=== PATIENT | male | born 1965 | race Caucasian/White ===

== ENCOUNTER 2024-08-23 14:43 | Inpatient (IN) | payer BC, SELFPAY ==
[2024-08-23 09:36] VITALS: BP 141/82
--- NOTE | 2024-08-23 11:28 | ED.GENMED ---
History of Present Illness
General
Chief Complaint: Anal/Rectal Problem
Source: patient
Exam Limitations: none
Time Seen by Provider: 08/23/24 11:09
Nursing documentation reviewed up to this point in time: agreed with
History of Present Illness
History of Present Illness:
59-year-old male with history of COPD, HIV states he had rectal pain for years but in the past 2 weeks has developed painful 'lumps' in the rectal area with intermittent bleeding. He feels generally weak and shaky. Denies fever or chills. Denies
abdominal pain. Denies trouble urinating. Denies diarrhea or constipation.
He is followed by Dr. Avelar infectious disease for his HIV.
Past History
Past History
ED Past Medical History: COPD and Other (HIV)
Social History
Tobacco: Smoker
Alcohol: Occasional
Personal:
Living: with family
Review of Systems
Review of Systems
Allergies reviewed?: Yes
All Other Systems: ROS reviewed and negative except as documented in HPI and ROS
Constitutional: Denies fever or chills
Respiratory: Denies trouble breathing
Cardiac: Denies chest pain
ABD/GI: Denies abdominal pain, nausea, vomiting, diarrhea or constipated
: Reports other (Painful growths perirectally.); Denies dysuria or difficulty voiding
Musculoskeletal: Reports no symptoms
Neurological: Reports no symptoms
Phy Exam
Physical Exam
Physical Exam:
GENERAL: No acute distress. A&Ox3.
CONSTITUTIONAL: Afebrile.
EYES: clear, conjunctivae normal
ENMT: moist mucus membranes, Pharynx nl
RESPIRATORY: Regular respirations, nonlabored, lungs clear.
CARDIOVASCULAR: Regular rate and rhythm, no murmurs, no rubs.
GI: Soft, nontender, normal BS
Rectal: Condylomatous growths perirectally, deep fissures with minimal blood
MUSCULOSKELETAL: Moves with ease. Well perfused.
SKIN: Warm, dry, pink
PSYCH: Normal mood and affect. Well kept, interactive and appropriate
NEUROLOGIC: Awake, alert and oriented. No focal neurological deficits
Course
Orders/Labs/Results
Orders:
Orders
08/23/24 Breakfast
NPO
Allow oral meds: No
Allow clear liquids: No
08/23/24 11:29
CD4 Leukocyte Marker Profile [S] Urgent
Complete Blood Count/With Diff Urgent
Comprehensive Metabolic Panel Urgent
08/23/24 12:31
HIV-1 by Quantitative NAAT [S] Urgent
08/23/24 13:03
CT Pelvis With Iv Contrast Urgent
Comment:
Reason For Exam: perineal infection
08/23/24 13:19
Anti-embolism (LINO) Hose As Directed
Type: Knee high
Pneumatic Compression Sleeves As Directed
Type: Knee high
Surgical Procedure As Directed
Surgical Procedure: I+D of perianal abscess
DX Deep Vein Thrombosis Video Routine
08/23/24 13:30
0.9% Sodium Chloride 1000 ml [Nss] 1,000 ml IV 100 mls/hr
08/23/24 13:37
Admit/Transfer Patient As Directed
Co-Sign Provider:
Level of Care: Inpatient admission
Assign to:: Medical/Surgical
Physician / Group: juan deras
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
Expected length of stay greater than two midnights?: Yes
ELOS- Estimated Length of Stay in days: 4
I certify the patient meets the requirements for IP care: Yes
Code Status As Directed
Resuscitation Status: Full Code
SURGICAL CONSULT Routine
Consulting Provider: Pasha Tirado
Was physician already notified: Yes
Reason for consult: rectal drainage, severe anal condyloma/hiv
08/23/24 13:40
PRN Pain Medication Management As Directed
May give lesser potent ordered pain med per pt: Yes
preference::
Protocol:: Medication orders for pain may be administered in a
manner that supports deferring to patient preference
when the pt is:
- Requesting an ordered lesser potent pain medication.
Least to most potent pain medications are defined
as: acetaminophen < NSAID < tramadol < opioids
(morphine, oxycodone, hydromorphone).
- Requesting a lesser dose of the same medication IF
ORDERED.
- Requesting a less intrusive route of administration
if both routes are prescribed by the provider (PO <
IV).
08/23/24 14:00
Piperacillin/Tazo 2.25 Gram [Zosyn] 2.25 grams in 50 ml IV Q8H
Piperacillin/Tazo 3.375 Gram [Zosyn] 3.375 gram in 50 ml IV Q6H
08/23/24 14:23
HYDROmorphone [Dilaudid] 0.5 mg IV NOW STA
08/23/24 14:30
Type+Screen Urgent
Glycohemoglobin (HgbA1c) Urgent
PTT Urgent
Prothrombin Time Urgent
08/23/24 15:14
Acetaminophen [Tylenol] 650 mg PO Q4HPRN PRN
HYDROmorphone [Dilaudid] 0.5 mg IV Q4HPRN PRN
HYDROmorphone [Dilaudid] 1 mg IV Q4HPRN PRN
Ondansetron Injectable [Zofran] 4 mg IV Q6HPRN PRN
Piperacillin/Tazo 3.375 Gram [Zosyn] 3.375 gram in 50 ml IV Q6H
08/23/24 15:14
Activity As Directed
Activity Level: As Tolerated
Pneumatic Compression Sleeves As Directed
Type: Knee high
Vital Signs As Directed
Frequency: Per unit guidelines
DX Deep Vein Thrombosis Video Routine
08/23/24 15:54
ABO2 Urgent
BBK Wristband Number:
Associate notified that ABO2 has been ordered: [id number]
Date: 08/23/24
Time: 14:39
Production Supply Equipment Tender ID: [id number]
08/24/24 06:00
Complete Blood Count/With Diff IN AM
Comprehensive Metabolic Panel IN AM
08/25/24 06:00
Complete Blood Count/With Diff IN AM
Comprehensive Metabolic Panel IN AM
08/26/24 06:00
Complete Blood Count/With Diff IN AM
Comprehensive Metabolic Panel IN AM
08/27/24 06:00
Complete Blood Count/With Diff IN AM
Comprehensive Metabolic Panel IN AM
Abnormal Lab Results
08/23/24
11:29
WBC 13.6 H 10^3/uL
(4.8-10.8)
RBC 4.18 L 10^6/uL
(4.70-6.10)
Hgb 12.4 L g/dL
(13.0-18.0)
Hct 37.5 L %
(39.0-52.0)
Abs Immat Gran (auto) 0.1 H 10^3/uL
(0-0.05)
Absolute Neuts (auto) 11.2 H 10^3/uL
(1.4-6.5)
Absolute Monos (auto) 0.9 H 10^3/uL
(0.1-0.6)
Immature Gran % 0.6 H %
(0-0.5)
Neutrophils % 82.2 H %
(42.2-75.2)
Lymphocytes % 10.4 L %
(20.5-51.1)
Sodium 132 L mmol/L
(135-145)
Chloride 95 L mmol/L
(98-107)
Glucose 219 H mg/dl
(70-99)
08/23/24 11:29
08/23/24 11:29
Vital Signs
Initial and Last Documented VS:
Initial Vital Signs
Temp Pulse Resp BP Pulse Ox
98.1 F 117 18 141/82 100
08/23/24 09:36 08/23/24 09:36 08/23/24 09:36 08/23/24 09:36 08/23/24 09:36
Last Documented Vital Signs
Temp Pulse Resp BP Pulse Ox
98.2 F 106 18 141/78 96
08/23/24 15:34 08/23/24 15:34 08/23/24 15:34 08/23/24 15:34 08/23/24 15:34
MDM/Problems Addressed
Differential Diagnosis Includes:
condyloma, rectal CA, Fornier's
MDM/Problems Addressed:
59-year-old male with history of COPD, HIV states he had rectal pain for years but in the past 2 weeks has developed painful 'lumps' in the rectal area with intermittent bleeding. He feels generally weak and shaky. Denies fever or chills. Denies
abdominal pain. Denies trouble urinating. Denies diarrhea or constipation.
He is followed by Dr. Avelar infectious disease for his HIV.
Afebrile, appears uncomfortable due to rectal pain.
11:[address] Tirado consulted and will have someone in his group see pt.
1:25 PM:
Patient to be admitted to hospitalist service at the request of Dr. Tirado
Hospitalist notified of admission
*Critical Care Note
Total Time (30-74mins, 75-104mins- exclusive of procedures): Not Applicable
ED Attending Note
-
Portions of this chart may have been created with voice recognition software.� Occasional wrong word or��sound alike� substitutions may have occurred due to the inherent limitations of voice recognition software.
Discharge Plan
Departure
Patient Disposition: Admit
Date of Disposition: 08/23/24
Time of Disposition: 13:20
Admit to: Med/Surg
Presentation/result/management discussed w/ accepting MD/DO: Hospitalist
Condition: Fair
Discharge Problem:
Mass of perirectal soft tissue
Interventions
Interventions:
*Risk Screen - Suicide Last Done: 08/23/24 09:36
*General Assessment Last Done: 08/23/24 09:36
*Neglect/Abuse Screening Last Done: 08/23/24 12:52
*ED COVID-19 Vaccine History Last Done: 08/23/24 09:36
*Nursing Disposition Last Done: 08/23/24 15:18
ED-Skin Assessment Last Done: 08/23/24 11:50
Discharge Date and Time
Discharge Date/Time: 08/23/24 15:18
[2024-08-23 11:45] LABS: % Basophils 0.4 % (0-2); % Eosinophils 0.2 % (0-6); % Immature Granulocytes 0.6 % (0-0.5); % Lymphocytes 10.4 % (20.5-51.1); % Monocytes 6.2 % (1.7-9.3); % Neutrophils 82.2 % (42.2-75.2); Absolute Basophils 0.1 10^3/uL (0-0.2); Absolute Immature Granulocytes 0.1 10^3/uL (0-0.05); Absolute Lymphocytes 1.4 10^3/uL (1.2-3.4); Absolute Monocytes 0.9 10^3/uL (0.1-0.6); Absolute Neutrophils 11.2 10^3/uL (1.4-6.5); Hematocrit 37.5 % (39.0-52.0); Hemoglobin 12.4 g/dL (13.0-18.0); Mean Corp Hgb Conc. 33.1 g/dL (33.0-37.0); Mean Corpuscular Hgb 29.7 pg (27.0-31.0); Mean Corpuscular Volume 89.7 fL (80.0-94.0); Nucleated Red Blood Cells % 0 % (-); Platelet Count 320 10^3/uL (130-400); Red Blood Cell Count 4.18 10^6/uL (4.70-6.10); Red Cell Dist. Width 12.5 % (11.5-14.5); White Blood Cell Count 13.6 10^3/uL (4.8-10.8)
[2024-08-23 11:59] LABS: ALT (SGPT) 15 U/L (0-50); AST (SGOT) 18 U/L (17-59); Albumin 4.1 g/dl (3.5-5.0); Alkaline Phosphatase 87 U/L (38-126); Blood Urea Nitrogen 20 mg/dl (9-20); Calcium 9.7 mg/dl (8.4-10.2); Carbon Dioxide 25 mmol/L (22-30); Chloride 95 mmol/L (98-107); Glucose 219 mg/dl (70-99); Potassium 4.2 mmol/L (3.5-5.1); Sodium 132 mmol/L (135-145); Total Protein 7.6 g/dl (6.3-8.2); eGFR > 60.00
--- NOTE | 2024-08-23 12:18 | CON.CRS ---
Consultation
-
Date/Time Consultation Requested: 08/23/2024, 11:30
Date/Time Consultation Performed: 08/23/2024, 12:45
Requesting Provider: Susan Allison
Performing Provider: eKon Blanco MD
Reason for Consultation: anal warts
Medical History
-
Chief Complaint: anal pain
History of Present Illness:
59-year-old male with a history of HIV and COPD presents to [facility] complaining of painful lumps in his rectal area. He states this has been going on 'for a long time'. He thinks perhaps years ago but over the last month the pain has been
worsening and growths have been increasing over the past two weeks. Currently he has pain 'all the time'. He is at the point where he can't sit or work. He has intermittent bleeding. He denies fevers but admits to chills in the AM. He denies
abdominal pain. His bowel movements are regular and unchanged. Denies nausea or vomiting. His partner states he has noticed a decrease in appetite. He currently sees Dr. Avelar of infectious disease for his HIV management. Per patient, his viral
loads and cell count have been normal as of 6 months ago. He is due to have lab work done next month. His WBC on arrival was 13.6. He has remained afebrile. He is tachycardic at 117. On exam in the ER, it was noted he had severe anal warts. We
have been consulted for surgical opinion.
Past Medical History
Past Medical History: COPD and Other (HIV)
Social History
Tobacco: Smoker (1ppd)
Alcohol: Occasional
Drug: None
Personal:
Living: With Family
Employment: Employed
Family History
Family History: Reviewed & Not Pertinent
Allergies / Home Medications
Allergy/AdvReac Type Severity Reaction Status Date / Time
No Known Allergies Allergy Unverified 08/23/24 09:40
Review of Systems
-
History Source: Patient
Constitutional: Chills
Abdomen/GI: Anorexia and Other (Rectal pain with 'lumps' noted around area)
A 10 point review of systems was completed, and was negative except as per HPI.
Physical Exam
Vital Signs
Temp 98.1 F 08/23/24 09:36
Pulse 117 08/23/24 09:36
Resp Rate 18 08/23/24 09:36
Blood pressure 141/82 08/23/24 09:36
SaO2 100 08/23/24 09:36
Lab Results / Allergies
08/23/24 11:29
08/23/24 11:29
WBC 13.6 10^3/uL (4.8-10.8) H 08/23/24 11:29
Hgb 12.4 g/dL (13.0-18.0) L 08/23/24 11:29
Hct 37.5 % (39.0-52.0) L 08/23/24 11:29
Plt Count 320 10^3/uL (130-400) 08/23/24 11:29
Abs Immat Gran (auto) 0.1 10^3/uL (0-0.05) H 08/23/24 11:29
Neutrophils % 82.2 % (42.2-75.2) H 08/23/24 11:29
Allergy/AdvReac Type Severity Reaction Status Date / Time
No Known Allergies Allergy Unverified 08/23/24 09:40
Physical Exam
General: Well Developed and Well Nourished
GI: Soft, Non Tender and Non Distended
Rectal: Other (large anal condyloma surrounding the anal area, shannon brown pus coming from anus, DEBORAH deferred, tender/erythetamous around scrotum)
Neuro: AO x 3
Data Reviewed
-
Labs: Labs Reviewed by me, Discussed with Physician and Discussed with Patient
Old Records: Reviewed
Assessment / Plan
-
Assessment: 59-year-old male with a history of HIV presents to [place] [facility] complaining of anal pain and lumps, found to have severe condylomatous disease with brown pus from anal area and scrotal tenderness/erythema, worrisome for Fourneir's
Plan:
-CT pelvis IV contrast urgent
-Start IV antibiotics
-NPO with IVFs
-Has been placed on the OR schedule for an I+D.
--- NOTE | 2024-08-23 13:34 | HPS.HSE ---
Family Physician
-
Family Physician:
Chief Complaint
-
Scrotal pain, rectal pain with brown discharge and anal condyloma warts
History of Present Illness
59-year-old male with history of HIV, COPD complaining of painful lumps to his rectal area that have been ongoing for a' long time' he reports in the last month the pain has been worsening and they have been increasing in size over the past 2 weeks.
He reports the pain is so bad he is unable to sit at work. He also reports a tender scrotal area. He follows with Dr. Avelar infectious disease for his HIV management his viral loads and cell count have been normal for the past 6 months. In the
ER he was noted to have severe anal warts with scrotal tenderness, shannon brown pus coming from anus along with WBC 13.6, and tachycardic HR 117. He was seen by surgery at bedside by Dr. Celestino aguiar who had concern for early foreign years disease
and is taking patient to the OR today. He has past medical history of HIV, COPD, anal condyloma, active smoker.
Medical History
Past Medical History
Past Medical History: Reports Other
Additional Past Medical History:
HIV
COPD
anal condyloma
active smoker.
Past Surgical History: Reports None
Social History
Tobacco: Smoker (1 pack/day)
Alcohol: Occasional (weekends 5-6 rum and coke and 1-2 drinks rum coke a week total 7 drinks a week)
Drug: None
Personal:
Living: With Family ( raghavendra)
Family History
Family History: Other (There are Alzheimer's, father living history pacemaker, 1 sister history of breast cancer surviving 2 brothers healthy)
Allergies / Home Medications
Allergies reflects when Allergies were last updated in [facility].
Home Medications with original date entered in [facility]
Allergy/Medication List:
Allergies
Allergy/AdvReac Type Severity Reaction Status Date / Time
No Known Allergies Allergy Unverified 08/23/24 09:40
Home Medications
.Intelence 200 mg PO BID 08/23/24
Priscobix 1 tab PO DAILY 08/23/24
Tivickay 50 tab PO BID 08/23/24
Review of Systems
-
History Source: Patient and Family ( at bedside)
A 12 point ROS was completed and negative except as noted: Yes
Constitutional: Reports Chills; Denies Fever
EENT: Denies Sore Throat or Runny Nose
Respiratory: Denies Cough or Trouble Breathing
Cardiac: Denies Chest Pain, Palpitations or Syncope
Abdomen/GI: Denies Abdominal Pain, Nausea, Vomiting, Diarrhea, Constipated, Bloody Stools or Black Stools
: Reports Other (Condyloma with tenderness to perineum/anus); Denies Dysuria, Frequency, Flank Pain, Incontinence or Difficulty Voiding
Musculoskeletal: Denies Joint Pain or Edema
Skin: Denies Itching or Rash
Neurological: Denies Dizzy, Headache or Weakness
Endocrine: Reports No Symptoms
Hematologic/Lymphatic: Reports No Symptoms
Psych: Reports Calm
Physical Exam
Vital Signs
Vital Signs
Temp Pulse Resp BP Pulse Ox
98.1 F 117 18 141/82 100
08/23/24 09:36 08/23/24 09:36 08/23/24 09:36 08/23/24 09:36 08/23/24 09:36
Physical Exam
General: Conversant and Pain; No Fever or Chills
HEENT: NormoCephalic, Anicteric, Moist mucous membranes, PERRLA, [place] Conjunctivae and No Ptosis
Respiratory: Clear; No Wheezes, Rales or Rhonchi
Cardiac: S1/S2 and Regular Rhythm; No Murmur, Rub, Gallop or Peripheral Edema
GI: Soft, Non Tender, Non Distended, Normal Bowel Sounds and No Hepatosplenomegaly
Rectal: Other (Condyloma to anus with tenderness to perineum/anus)
Musculoskeletal: No Clubbing, No Cyanosis and No Edema
Skin: Warm and Dry; No Rash
Neuro: AO x 3, No Motor Deficits, Cranial Nerves Intact and No Sensory Deficits; No Slurred Speech, Facial Droop, Tremors or Sedated
Psych: Calm
Laboratory Results
-
08/23/24 11:
08/23/24 11:
Laboratory Results
Total Bilirubin 1.0 mg/dl (0.2-1.3) 08/23/24 11:
AST 18 U/L (17-59) 08/23/24 11:
ALT 15 U/L (0-50) 08/23/24 11:
Alkaline Phosphatase 87 U/L (38-126) 08/23/24 11:
Data Reviewed
-
CT Scan: Report Reviewed by me
Lab Data: Labs Reviewed by me
Impression/Plan
-
Impression/plan:
Admit to MedSurg
#Scrotal/rectal pain/rectal discharge with Anal warts with perineal abscess and NEW LEFT aspect ANAL CANAL MASS
#Severe anal condyloma disease
WBC 13.6 with left shift temp 98.1 F, HR 117, 141/82
-Consult Dr. Stephens patient at bedside
-N.p.o. plan for OR today for I&D with culture
-Check CT pelvis with IV contrast
-Tylenol as needed fever
IV 1 L NSS given in ER
-IV Zosyn
-IV Dilaudid as needed pain, IV Zofran
-Follow CBC, CMP, check coags
CT pelvis with contrast:
1. Extensive soft tissue thickening and stranding involving the perineum with a 4.7 x 4.6 x 2.6 cm peripherally enhancing collection anteriorly with numerous internal septations consistent with abscess.
This abuts the posterior aspect of the scrotum.
2. Additionally there is a 0.8 x 0.5 cm peripheral enhancing focus along the right aspect of the mid anal canal suspicious for a small perianal abscess.
3. There is extensive thickening and heterogeneity along the left aspect of the anal canal which may related to infection although suspicious for an underlying mass.
Recommend direct visualization for further characterization.
4. There is a 1.5 x 0.9 cm soft tissue nodule along the left anterolateral aspect of the anal canal, in the region of the anorectal junction which may be reactive although a malignant node cannot be
excluded.
#HIV x 25-30 years
-Follows with Dr. Avelar infectious disease [facility]
-Last viral load was normal within the last 6 months
-Check CD4 count, HIV serologies
-Most recent CD4 count 467 with undetectable viral load, percent CD4 14.6 on 03/09/2024 visit
-Medical records and medication list requested from Dr. Jean Avelar infectious disease office [phone]
-Continue Intelence 200mg twice daily, Trivicay 50 mg bid, Prezcobix 800mg/150mg daily (left message for to bring medications to hospital as we do not carry
#Acute hyperglycemia unclear if DM 2
BS 219
Accu-Cheks with SSI, check HgbA1c
#COPD�no acute exacerbation
Active smoker
-1 pack/day
-Nicotine patch 21 mg given
-Cessation advised
#Alcohol use
Patient drinks 5-6 rum and coke on weekends and 1-2 rum and coke drinks during the week totaling 7 drinks per week
Last drink was yesterday 08/22/2024 approximately 4 PM
DVT prophylaxis
SCDs
Full code
[2024-08-23 14:00] VITALS: BP 113/87
--- NOTE | 2024-08-23 14:14 | W.PN.UPDATE ---
Update Note
Progress Note Update
This is an addendum to the H&P written by Zulay Adams on 08/23/2024.� Patient seen and examined independently with LANDSCAPE PAINTER.
59-year-old male past medical history of HIV, COPD presenting with painful lumps in his rectal area worsening over the past 2 weeks with intermittent bleeding.� Denies abdominal pain or chills or nausea or vomiting. Denies any scrotal pain or
urinary symptoms.�
Patient follows with Dr. Avelar of infectious disease for HIV management and his cell counts have been normal as of 6 months ago.
On examination he had anal warts, Brown pus from the anal area and scrotal tenderness/erythema concerning for early�Javier's.�
Labs show leukocytosis.
Urgent CT scan pending.� NPO.� IV fluids.� Zosyn.� Colorectal to take to the OR for I&D.
[2024-08-23 14:27] VITALS: BMI 21.6
[2024-08-23] MEDS: NSS 1000 IV (14:38)
[2024-08-23] MEDS: ZOSYN 50 IV ×2 (14:39→21:02)
[2024-08-23] MEDS: DILAUDID 0.5 MG IV (14:39)
[2024-08-23 14:55] LABS: INR 1.11; PT 14.6 Sec (11.4-14.6)
[2024-08-23 15:34] VITALS: BP 141/78
--- NOTE | 2024-08-23 16:23 | W.PN.UPDATE ---
Update Note
Progress Note Update
Spoke with patient discussed results of CT scan; currently, no concern for Javier's; there are 2 abscesses, one at the base of the scrotum and one perianally; there is also concern for an anal mass; I explained that this will require incision and
drainage in the operating room as well as evaluation for anal mass with possible biopsy; explained the nature of [place] Jesse tumor, its association with the HPV virus and the elevated risk of developing cancer within the tumor; the patient
understood and all questions were answered; okay for regular diet and we will plan for the OR tomorrow with Celestino in the afternoon, n.p.o. at midnight
[2024-08-23] MEDS: DILAUDID 1 MG IV ×2 (17:14→21:18)
[2024-08-23] MEDS: NON-FORMULARY ITEM 200 MG PO (21:02)
[2024-08-23] MEDS: TIVICAY 50 MG PO (21:20)
[2024-08-23 23:35] VITALS: BP 107/66
[2024-08-24] VITALS (21 sets, daily range): BP systolic 109–152; BP diastolic 58–82
[2024-08-24] MEDS: NSS 1000 IV ×2 (01:15→16:56)
[2024-08-24] MEDS: ZOSYN 50 IV ×4 (01:43→21:07)
[2024-08-24] MEDS: DILAUDID 1 MG IV (01:54)
[2024-08-24 07:24] LABS: % Basophils 0.4 % (0-2); % Eosinophils 1.3 % (0-6); % Immature Granulocytes 0.6 % (0-0.5); % Lymphocytes 13.9 % (20.5-51.1); % Monocytes 9.2 % (1.7-9.3); % Neutrophils 74.6 % (42.2-75.2); Absolute Eosinophils 0.1 10^3/uL (0-0.7); Absolute Immature Granulocytes 0.1 10^3/uL (0-0.05); Absolute Lymphocytes 1.5 10^3/uL (1.2-3.4); Absolute Neutrophils 8.1 10^3/uL (1.4-6.5); Hematocrit 33.6 % (39.0-52.0); Hemoglobin 11.3 g/dL (13.0-18.0); Mean Corp Hgb Conc. 33.6 g/dL (33.0-37.0); Mean Corpuscular Hgb 29.5 pg (27.0-31.0); Mean Corpuscular Volume 87.7 fL (80.0-94.0); Nucleated Red Blood Cells % 0 % (-); Platelet Count 287 10^3/uL (130-400); Red Blood Cell Count 3.83 10^6/uL (4.70-6.10); Red Cell Dist. Width 12.5 % (11.5-14.5); White Blood Cell Count 10.8 10^3/uL (4.8-10.8)
--- NOTE | 2024-08-24 08:18 | W.PN.HOSP.TC ---
Today's Communication/Plan
-
Continue antibiotics
Follow cultures
Continue HIV medications
Follow viral load, CD4 counts
Assessment / Plan
Assessment / Plan
59-year-old male with PMH of HIV, and COPD presenting with painful lumps in the rectal area that been worsening over the past 2 weeks. Patient reports that the mass bleeds intermittently. He follows with infectious disease, Dr. Avelar and reports
that his cell count has been normal.
#Anal warts with scrotal tenderness/erythema
-CT with extensive soft tissue thickening on stranding suggestive of abscess.
-2 perineal abscesses in 2 new left anal canal mass with severe anal condyloma on exam.
-S/p perianal abscess drainage with biopsies of anal mass (Dr. Tirado). Culture of perianal abscesses sent.
-Appreciate colorectal.
-Appreciate ID.
-Continue Zosyn per ID.
-Pain control.
History of HIV infection. (Follows Dr. Yonis Avelar outpatient)
-Reports normal CD counts.
-Viral load, CD4 count pending
-ID following.
-Continue Prezcobix, Intelence, Dolutegrvir.
#Hyperglycemia
-A1c 6.0.
#Hyponatremia
-Suspect hypovolemia.
-Improve oral intake, patient able to drink water.
#COPD
-Active smoker.
-Wheezing on exam.
-Smoking cessation counseling.
-DuoNebs.
-Nicotine patch.
DVT PPx: Lovenox
CODE STATUS: Full code
Pelvic CT 08/23/2024:
There is extensive soft tissue thickening and stranding involving the perineum with a 4.7 x 4.6 x 2.6 cm peripherally enhancing collection anteriorly with numerous internal septations consistent with abscess. This abuts the posterior aspect of the
scrotum. Additionally there is a 0.8 x 0.5 cm peripheral enhancing focus along the right aspect of the mid anal canal suspicious for a small perianal abscess.
There is extensive thickening and heterogeneity along the left aspect of the anal canal which may related to infection although suspicious for an underlying mass. Recommend direct visualization for further characterization.
There is a 1.5 x 0.9 cm soft tissue nodule along the left anterolateral aspect of the anal canal, in the region of the anorectal junction which may be reactive although a malignant node cannot be excluded.
Anticipated Discharge: 24 - 48 hours
Subjective/Interval History
-
Date of Service: August 24, 2024
Patient seen and examined today lying in bed in no acute distress. Denies chest pain or shortness of breath, fever and chills. Denies abdominal pain, nausea or vomiting.
Objective Data
-
Labs:
Laboratory Results
08/24/24
07:04
WBC 10.8
Hgb 11.3 L
Hct 33.6 L
Plt Count 287
Sodium Pending
Potassium Pending
Chloride Pending
Carbon Dioxide Pending
BUN Pending
Creatinine Pending
Glucose Pending
Calcium Pending
Total Bilirubin Pending
AST Pending
ALT Pending
Alkaline Phosphatase Pending
Vital Signs:
Vital Signs
Temp Pulse Resp BP Pulse Ox
99.5 F 111 18 107/66 94
08/23/24 23:35 08/23/24 23:35 08/23/24 23:35 08/23/24 23:35 08/23/24 23:35
I&O
08/23/24 08/24/24 08/25/24
06:59 06:59 06:59
Intake Total 1780 / 1780
Output Total 200 / 300 100 / 100
Balance 1580 / 1480 -100 / -100
Review of Systems
-
History Source: Patient
All other systems: Not reviewed unless documented
Constitutional: Reports No Symptoms; Denies Fever, Weight Loss, Night Sweats or Chills
Respiratory: Reports Wheezing; Denies Trouble Breathing
Cardiac: Reports No Symptoms; Denies Chest Pain or Palpitations
Abdomen/GI: Reports Other (Rectal pain); Denies Abdominal Pain, Nausea or Vomiting
Genitourinary: Reports Other (Scrotal pain)
Musculoskeletal: Reports No Symptoms
Skin: Reports Other (Anorectal warts and abscess)
Neuro: Reports No Symptoms
Physical Exam
-
General: No Apparent Distress and Comfortable
HEENT: Normocephalic, Atraumatic and Moist Mucous Membranes
Respiratory: Wheezes and Non Labored Respirations
Cardiac: Regular Rhythm and S1/S2; Negative Murmur, Rub or Gallop
GI: Soft, Nontender, Nondistended and Normal Bowel Sounds; Negative Organomegaly
Rectal: Deferred by Provider
Musculoskeletal: No Clubbing, No Cyanosis and No Edema
Skin: Warm and Other (Rectal warts abscess); Negative Rash
Neuro: Awake, AO x 3 and Nonfocal/Grossly Intact
Psych: Calm
Data Reviewed
-
CT Scan: Image personally visualized and interpreted, Report Reviewed by me and Discussed with Physician
Labs: Labs Reviewed by me and Discussed with Physician
[2024-08-24] MEDS: NICODERM TRANSDERMAL 21 MG TRANSDERM (09:08)
[2024-08-24] MEDS: NON-FORMULARY ITEM 200 MG PO ×2 (09:09→21:10)
[2024-08-24] MEDS: NON-FORMULARY ITEM 1 TABLET PO (09:10)
[2024-08-24] MEDS: NON-FORMULARY ITEM 1 UNIT PO ×2 (09:10→21:08)
[2024-08-24 10:06] LABS: ALT (SGPT) 14 U/L (0-50); AST (SGOT) 16 U/L (17-59); Albumin 3.4 g/dl (3.5-5.0); Alkaline Phosphatase 74 U/L (38-126); Blood Urea Nitrogen 17 mg/dl (9-20); Calcium 9.4 mg/dl (8.4-10.2); Carbon Dioxide 21 mmol/L (22-30); Chloride 100 mmol/L (98-107); Estimated Creatinine Clearance 56 ml/min; Glucose 128 mg/dl (70-99); Sodium 132 mmol/L (135-145); Total Bilirubin 0.8 mg/dl (0.2-1.3); Total Protein 6.5 g/dl (6.3-8.2); eGFR > 60.00
--- NOTE | 2024-08-24 10:31 | CON.ID ---
Consultation
-
Date/Time Consultation Requested: August 24, 2024 0824
Date/Time Consultation Performed: August 24, 2024 1030
Requesting Provider: Dr. Rachael Schwab
Performing Provider: Dr. Ankita Goldsmith
Reason for Consultation: HIV with perineal abscess
Chief Complaint / Past History
Chief Complaint
Painful rectum
History of Present Illness
History obtained from patient and his at bedside. 59-year-old MSM with longstanding history of HIV, well-controlled on salvage ART therapy who presented to the hospital yesterday due to worsening pain in the rectum and scrotum. Patient
reports he has lesions in his rectum for many years and they often waxed and waned. He never seeked medical care regarding these lesions. Never had anal Pap nor colonoscopy. Over time, the lesions progressively increase in size and especially
over the past 4 to 6 weeks. The last 2 weeks, the pain became very severe. He is unable to sit. He noted brown discharge from the rectum. In ED white count of 13.6. Perineal area noted to have giant condyloma with brown pus; scrotum was red and
tender. Pelvic CT showed abscess on perineum abutting the posterior aspect of the scrotum, and small perianal abscess on the right. There is extensive thickening along the left aspect of the anal canal suspicious for underlying mass. There is
another soft tissue nodule along the left anterolateral anal canal. Today he was taken to the OR status post drainage of the abscesses and needle biopsy of the mass. No fevers or chills. No weight loss. He is compliant with HIV regimen.
Past History
Additional Past Medical History:
HIV on salvage therapy Prezcobix, Dolutegravir, Intelence; follows with Dr. Avelar
COPD
Allergy History:
No Known Allergies Allergy (Unverified 08/23/24 09:40)
Medications Reviewed: Yes
Current Antibiotics:
Zosyn
Social History
Tobacco: Smoker (1ppd)
Alcohol: Occasional
Personal: ( [place])
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 )
Family History
Family History: Not Pertinent
Review of Systems
Review of Systems
General: Negative Fever, Chills or Change in Appetite
HEENT: Negative Lymphadenopathy, Sinus Problems, Headache or Pharyngitis
Cardiovascular: Negative Chest Pain or Dyspnea
Respiratory: Negative Dyspnea or Cough
Gasteroenterology: Negative Nausea, Vomiting or Diarrhea
Genital / Urological: Negative Dysuria or Flank Pain
Endocrine: Negative Weakness
Musculoskeletal: Negative Arthralgias
Neurological: Negative Dizziness
All systems: All other systems were reviewed and were negative
Vital Signs
Temp Pulse Resp BP Pulse Ox
98.5 F 101 17 129/76 98
08/24/24 07:45 08/24/24 07:45 08/24/24 07:45 08/24/24 07:45 08/24/24 07:45
Physical Exam
Physical Exam
Constitutional: No Acute Distress
Head: Other (N)
Eyes: No Conjunctival Hemorrhage and Sclera Anicteric
Pharynx: Benign
Oral: No Thrush and No Ulcers
Cardiovascular: Regular Rate and S1/S2
Pulmonary: Clear
Gastrointestinal: Soft, Non Tender, Non Distended and Normal Bowel Sounds
Genito-Urinary: Negative CVA Tenderness
Extremities: Negative Edema
Neurological: AO x 3
Lab / Diagnostic Study Results
08/24/24 07:04
08/24/24 07:04
Abs Immat Gran (auto) 0.1 10^3/uL (0-0.05) H 08/24/24 07:04
Absolute Neuts (auto) 8.1 10^3/uL (1.4-6.5) H 08/24/24 07:04
Absolute Lymphs (auto) 1.5 10^3/uL (1.2-3.4) 08/24/24 07:04
Absolute Monos (auto) 1.0 10^3/uL (0.1-0.6) H 08/24/24 07:04
Absolute Basos (auto) 0.0 10^3/uL (0-0.2) 08/24/24 07:04
Immature Gran % 0.6 % (0-0.5) H 08/24/24 07:04
Neutrophils % 74.6 % (42.2-75.2) 08/24/24 07:04
Lymphocytes % 13.9 % (20.5-51.1) L 08/24/24 07:04
Monocytes % 9.2 % (1.7-9.3) 08/24/24 07:04
Eosinophils % 1.3 % (0-6) 08/24/24 07:04
Basophils % 0.4 % (0-2) 08/24/24 07:04
PT 14.6 Sec (11.4-14.6) 08/23/24 14:30
INR 1.11 08/23/24 14:30
Microbiology Results
Micro:
08/24/24 09:46 MRSA Screen - Pending
Nose
08/23/[address]: There is extensive soft tissue thickening and stranding involving the perineum with a 4.7 x 4.6 x 2.6 cm peripherally enhancing collection anteriorly with numerous internal septations consistent with abscess. This abuts the
posterior aspect of the scrotum. Additionally there is a 0.8 x 0.5 cm peripheral enhancing focus along the right aspect of the mid anal canal suspicious for a small perianal abscess. There is extensive thickening and heterogeneity along the left
aspect of the anal canal which may related to infection although suspicious for an underlying mass. Recommend direct visualization for further characterization. There is a 1.5 x 0.9 cm soft tissue nodule along the left anterolateral aspect of the
anal canal, in the region of the anorectal junction which may be reactive although a malignant node cannot be excluded.
Assessment / Plan
# Perianal and scrotal abscesses
# Giant condyloma acuminata, ?superimposed malignancy
# HIV well-controlled, viral load <20, CD4 467 (03/04/24)
- 08/23 s/p I+D perineal/perianal abscess, biopsies of anal mass ([id number])
- Appreciate colorectal surgeon - OR cultures pending
-Continue Zosyn for now.
- Continue HIV regimen Prezcobix, Dolutegravir, Intelence.
--- NOTE | 2024-08-24 12:26 | W.IMMPOSTOP ---
Addendum entered and electronically signed by Pasha Tirado MD 08/24/24 12:35:
Patient's next of kin Tutu freeman.
Original Note:
Surgical Immed Post Op Note
-
Primary Surgeon: Robina Tirado MD
Assisting Surgeon: none
Pre-op Diagnosis: 1) perianal abscess 2) anal mass
Post-op Diagnosis: same
Procedure Performed: 1) anal exam under anesthesia 2) incision and drainage perianal abscess 3) biopsies anal mass
Anesthesia Type: LMA plus local
Specimen / Cultures: 1) cultures perianal abscess 2) core needle biopsies anal mass 3) biopsy anal mass
Estimated Blood Loss: 50 cc
Complications: no immediate
Operative Findings: 1) perianal/perineal abscess with ? of fisulous disease 2) anal mass involving anal margin/verge and anal canal (8 cm by 4 cm by 4 cm)
1 gram TXA given IV for ooziness.
Reyna in bladder.
Packed with surgicel, iodoform and covered with 4 by 4 fluffs and mesh panties.
Sending back to floor.
Resuming diet.
--- NOTE | 2024-08-24 13:10 | PTCARENOTE ---
pt returned from PACU AOX3 denies pain. VS per unit guidelines. dressing visualized with MEDIA MARKETING DIRECTOR present, small drainage. CB in reach, diet completed
[2024-08-24] MEDS: DILAUDID 0.5 MG IV ×3 (13:53→22:54)
--- NOTE | 2024-08-24 16:27 | W.PN.UPDATE ---
Update Note
Progress Note Update
I saw and evaluated the patient. I reviewed the resident�s note and agree with findings and plan as documented in the resident�s note except for changes in documentation
59-year-old with scrotal pain and rectal pain and brownish discharge from rectum difficulty with sitting up patient follows up with Dr. Avelar from infectious disease for his HIV management. Viral loads have been stable. Patient was found to have
anal warts and Abscess.
CT abdomen and pelvis-extensive soft tissue thickening and stranding in the perineum 4.7 into 4.6 no 2.6 cm enhancing collection anteriorly with numerous internal septations consistent with abscess. 0.18 to 0.5 cm peripheral enhancing focus along
with the right aspect of the mid anal canal suspicious for small perianal abscess.
CVS: S1-S2 normal
Chest: CTA B/L
Abdomen: Soft, NT / Bowel sounds present
Rectum-condyloma, firm mass palpable. Rectal, packing in
# Perineal pain with rectal discharge and anal warts
2 Perineal abscesses and new left anal canal mass
Severe anal condyloma disease
Anal mass-biopsy done in the OR today-rule out malignancy
Patient never had a colonoscopy
Status post I&D in OR today by Dr. Tirado
IV Zosyn to be continued
Colorectal surgery evaluation appreciated
OR cultures pending
Infectious disease consultation requested since patient has HIV
# Hyponatremia
# Hyperglycemia-hemoglobin A1c 6.0
# HIV
On Prezcobix, Tivicay and Intelence-he has been on the same regimen for the past 78 years
[address] with [address]Don Avelar
Viral load and CD4 counts pending
ID eval.
# COPD
# Active smoker-cessation counseling
# DVT prophylaxis-Lovenox
# Full code
Discussed with nursing.
Discussed with at bedside
[2024-08-24 16:48] LABS: CD4 % of Cells Analyzed 13 % (32-64); CD4 Absolute Count 239 cells/uL (430-1800)
[2024-08-24] MEDS: LOVENOX 40 MG SC (17:01)
[2024-08-24 23:32] LABS: HIV-1 Quan NAAT Interpretation Detected (Not Detected); HIV-1 Quant NAAT (copies/ml) 33 cpy/mL; HIV-1 Quant NAAT (log copy/mL) 1.52 log cpy/mL
[2024-08-25] MEDS: NSS 1000 IV (02:34)
[2024-08-25] MEDS: ZOSYN 50 IV ×2 (02:34→08:24)
[2024-08-25 03:00] VITALS: BP 134/76
--- NOTE | 2024-08-25 07:08 | W.PN.HOSP.TC ---
Addendum entered and electronically signed by Rachael Schwab MD 08/25/24 15:36:
59-year-old male with perirectal pain, abscess
I saw and evaluated the patient. I reviewed the resident�s note and agree with findings and plan as documented in the resident�s note.
Patient was seen earlier today. Late documentation
Got a message from nursing that patient will be leaving AGAINST MEDICAL ADVICE if was not discharged before 1 PM
When I walked in he was dressed to leave very pleasant and polite that he really wants to go
Discussed that his cultures were still pending and if we choose an antibiotic it would be an empiric antibiotic without cultures it which may or may not work. He is aware about that and he still wants to go. He is also aware that he needs to
contact colorectal surgery for biopsy results as well as culture results.
Care discussed with the patient including sitz bath
Discussed with colorectal surgery
Discussed with infectious disease
Discussed with nursing at bedside
Prescription for Augmentin sent to [facility]
Total discharge time 34 minutes
Original Note:
Today's Communication/Plan
-
Continue IV Zosyn; will transition to empiric Augmentin 875 twice daily for 10 days upon discharge per ID recommendations if patient goes home prior to culture results
Post op care per colorectal
Assessment / Plan
Assessment / Plan
59-year-old male with PMH of HIV, and COPD presenting with painful lumps in the rectal area that been worsening over the past 2 weeks prior to arrival. Patient reports that the mass bleeds intermittently. He follows with infectious disease,
[facility] and reports that his cell count has been normal.
# Perianal pain secondary to perianal abscess and left anal mass
$Anal condyloma
-CT with extensive soft tissue thickening on stranding suggestive of abscess.
-2 perineal abscesses in 2 new left anal canal mass with severe anal condyloma on exam.
-S/p perianal abscess drainage with biopsies of anal mass. Culture of perianal abscesses pending. Anal mass biopsy results pending
-Colorectal input appreciated
-Continue Zosyn per ID. MRSA negative; Empiric Augmentin 875mg po bid x 10 days upon d/c
-Pain control.
#History of HIV infection. (Follows Dr. Yonis Avelar outpatient)
-ID following.
-Continue Prezcobix, Intelence, Dolutegrvir.
#Hyperglycemia
-A1c 6.0.
#Hyponatremia
-Suspect hypovolemia.
-Improve oral intake, patient able to drink water.
#COPD
-Active smoker; encouraged to quit smoking
-DuoNebs.
-Nicotine patch.
DVT PPx: Lovenox
CODE STATUS: Full code
Pelvic CT 08/23/2024:
There is extensive soft tissue thickening and stranding involving the perineum with a 4.7 x 4.6 x 2.6 cm peripherally enhancing collection anteriorly with numerous internal septations consistent with abscess. This abuts the posterior aspect of the
scrotum. Additionally there is a 0.8 x 0.5 cm peripheral enhancing focus along the right aspect of the mid anal canal suspicious for a small perianal abscess.
There is extensive thickening and heterogeneity along the left aspect of the anal canal which may related to infection although suspicious for an underlying mass. Recommend direct visualization for further characterization.
There is a 1.5 x 0.9 cm soft tissue nodule along the left anterolateral aspect of the anal canal, in the region of the anorectal junction which may be reactive although a malignant node cannot be excluded.
Anticipated Discharge: Within 24 hours
Subjective/Interval History
-
Date of Service: August 25, 2024
Patient conversant and appears comfortable. Offers no new complaints. AF VSS. Able to pass flatus; no bowel movement since procedure yesterday
Objective Data
-
Labs:
Laboratory Results
08/25/24
06:58
WBC Pending
Hgb Pending
Hct Pending
Plt Count Pending
Sodium Pending
Potassium Pending
Chloride Pending
Carbon Dioxide Pending
BUN Pending
Creatinine Pending
Glucose Pending
Calcium Pending
Total Bilirubin Pending
AST Pending
ALT Pending
Alkaline Phosphatase Pending
Vital Signs:
Vital Signs
Temp Pulse Resp BP Pulse Ox
97.2 F 94 18 134/76 94
08/25/24 03:00 08/25/24 03:00 08/25/24 03:00 08/25/24 03:00 08/25/24 03:00
I&O
08/24/24 08/25/24 08/26/24
06:59 06:59 06:59
Intake Total 1780 / 1780 1920 / 1920
Output Total 200 / 300 2325 / 2325
Balance 1580 / 1480 -405 / -405
Review of Systems
-
History Source: Patient
All other systems: Not reviewed unless documented
Constitutional: Reports No Symptoms; Denies Fever, Weight Loss, Night Sweats or Chills
Respiratory: Reports No Symptoms
Cardiac: Reports No Symptoms; Denies Chest Pain or Palpitations
Abdomen/GI: Reports Other (Rectal pain); Denies Abdominal Pain, Nausea or Vomiting
Genitourinary: Reports Other (Scrotal pain)
Musculoskeletal: Reports No Symptoms
Skin: Reports Other (Anorectal warts and abscess)
Neuro: Reports No Symptoms
Physical Exam
-
General: No Apparent Distress, Comfortable and Conversant
HEENT: Normocephalic, Atraumatic and Moist Mucous Membranes
Respiratory: Clear to Auscultation and Non Labored Respirations
Cardiac: Regular Rhythm and S1/S2; Negative Murmur, Rub or Gallop
GI: Soft, Nontender, Nondistended and Normal Bowel Sounds; Negative Organomegaly
Rectal: Deferred by Provider
Genito-urinary: Reyna
Musculoskeletal: No Clubbing, No Cyanosis and No Edema
Skin: Warm; Negative Rash
Neuro: Awake, AO x 3 and Nonfocal/Grossly Intact
Psych: Calm
Data Reviewed
-
Labs: Labs Reviewed by me, Discussed with Physician and Discussed with Patient
[2024-08-25 07:29] LABS: % Basophils 0.1 % (0-2); % Immature Granulocytes 0.9 % (0-0.5); % Lymphocytes 13.9 % (20.5-51.1); % Monocytes 6.7 % (1.7-9.3); % Neutrophils 78.4 % (42.2-75.2); Absolute Immature Granulocytes 0.1 10^3/uL (0-0.05); Absolute Lymphocytes 1.5 10^3/uL (1.2-3.4); Absolute Monocytes 0.7 10^3/uL (0.1-0.6); Absolute Neutrophils 8.3 10^3/uL (1.4-6.5); Hematocrit 33.5 % (39.0-52.0); Mean Corp Hgb Conc. 32.8 g/dL (33.0-37.0); Mean Corpuscular Hgb 29.6 pg (27.0-31.0); Mean Corpuscular Volume 90.3 fL (80.0-94.0); Mean Platelet Volume 9.7 fL (7.4-10.4); Nucleated Red Blood Cells % 0 % (-); Platelet Count 296 10^3/uL (130-400); Red Blood Cell Count 3.71 10^6/uL (4.70-6.10); Red Cell Dist. Width 12.3 % (11.5-14.5); White Blood Cell Count 10.6 10^3/uL (4.8-10.8)
[2024-08-25 07:47] VITALS: BP 128/67
[2024-08-25] MEDS: NICODERM TRANSDERMAL 21 MG TRANSDERM (08:22)
[2024-08-25] MEDS: NON-FORMULARY ITEM 1 UNIT PO (08:25)
[2024-08-25] MEDS: NON-FORMULARY ITEM 200 MG PO (08:26)
[2024-08-25] MEDS: NON-FORMULARY ITEM 1 TABLET PO (08:26)
[2024-08-25 10:07] LABS: ALT (SGPT) 15 U/L (0-50); AST (SGOT) 17 U/L (17-59); Albumin 2.8 g/dl (3.5-5.0); Alkaline Phosphatase 68 U/L (38-126); Blood Urea Nitrogen 9 mg/dl (9-20); Calcium 8.9 mg/dl (8.4-10.2); Carbon Dioxide 24 mmol/L (22-30); Chloride 103 mmol/L (98-107); Estimated Creatinine Clearance 81 ml/min; Glucose 166 mg/dl (70-99); Potassium 4.3 mmol/L (3.5-5.1); Sodium 133 mmol/L (135-145); Total Bilirubin 0.3 mg/dl (0.2-1.3); Total Protein 5.8 g/dl (6.3-8.2); eGFR > 60.00
[2024-08-25] MEDS: DILAUDID 0.5 MG IV (10:45)
--- NOTE | 2024-08-25 11:06 | W.PN.ID1 ---
Date of Service
Date of Service: August 25, 2024
Today's Communication
See below.
Assessment / Plan
# Perianal and scrotal abscesses
# Giant condyloma acuminata, ?superimposed malignancy
# HIV well-controlled, viral load <20, CD4 467 (03/04/24), on Prezcobix, Dolutegravir, Intelence.
- 08/23 s/p I+D perineal/perianal abscess, biopsies of anal mass ([id number])
- OR cultures pending; gram stain polymicrobial organisms. Path pending
-Continue Zosyn
- Patient adamant about going home. I informed him culture data is still pending.
He states he was told by multiple doctors that he is cleared to be discharged today.
If dc home, empiric Augmentin 875mg po bid x 10 days. Follow-up with Surgery.
Chief Complaint
-: Other (abscess)
Subjective / Review of Systems
He is waiting to be discharged.
Vital Signs / Physical Exam
Vital Signs
Vital Signs
Temp Pulse Resp BP Pulse Ox
97.3 F 83 18 128/67 96
08/25/24 07:47 08/25/24 07:47 08/25/24 07:47 08/25/24 07:47 08/25/24 07:47
Physical Exam
Constitutional: No Acute Distress
Cardiovascular: Regular Rate and S1/S2
Pulmonary: Clear
Gastrointestinal: Soft, Non Tender, Non Distended and Normal Bowel Sounds
Extremities: Negative Edema
Neurological: AO x 3
Objective Data
Lab Data
Lab Results
08/25/24 06:58
08/25/24 06:58
PT 14.6 Sec (11.4-14.6) 08/23/24 14:30
INR 1.11 08/23/24 14:30
APTT 30.0 Sec (23.4-35.0) 08/23/24 14:30
Estimated Creat Clear 81 ml/min 08/25/24 06:58
Total Bilirubin 0.3 mg/dl (0.2-1.3) 08/25/24 06:58
AST 17 U/L (17-59) 08/25/24 06:58
ALT 15 U/L (0-50) 08/25/24 06:58
Alkaline Phosphatase 68 U/L (38-126) 08/25/24 06:58
Most recent labs reviewed.
Micro Results:
08/24/24 12:30 Anaerobic Culture - Preliminary
Anus Culture pending. Anaerobic cultures are examined after 3
days incubation. Additional information to follow.
08/24/24 12:30 Wound Culture - Preliminary
Abscess Gram Stain - Preliminary
08/24/24 09:46 MRSA Screen - Final
Nose No Methicillin Resistant Staphylococcus aureus isolated.
08/23/[address]: There is extensive soft tissue thickening and stranding involving the perineum with a 4.7 x 4.6 x 2.6 cm peripherally enhancing collection anteriorly with numerous internal septations consistent with abscess. This abuts the
posterior aspect of the scrotum. Additionally there is a 0.8 x 0.5 cm peripheral enhancing focus along the right aspect of the mid anal canal suspicious for a small perianal abscess. There is extensive thickening and heterogeneity along the left
aspect of the anal canal which may related to infection although suspicious for an underlying mass. Recommend direct visualization for further characterization. There is a 1.5 x 0.9 cm soft tissue nodule along the left anterolateral aspect of the
anal canal, in the region of the anorectal junction which may be reactive although a malignant node cannot be excluded.
--- NOTE | 2024-08-25 11:23 | PN.CDI ---
Addendum entered and electronically signed by Rachael Schwab MD 08/25/24 18:23:
Documentation is complete at this time.
Original Note:
CDI
- -
CDI:
Physician Documentation Request
Admit Date: 08/23/24 14:43
Dear Doctor Josselin,
Please review the following and provide your response in the progress notes.
Clinical Indicators:
Pt admitted with scrotal/perianal abscess/ S/p drainage 08/24
Documented per H&P, ' WBC 13.6 with left shift temp 98.1 F, HR 117, 141/82....-IV Zosyn...'
On admission WBC 13.6, HR 117
Please clarify which of the following most accurately describes the status of the patient's infection:
Sepsis-POA
- Systemic manifestations of infection, with 2 or more SIRS criteria which include:
- Fever >100.4 degrees F or hypothermia < 96.8 degrees F
- Leukocytosis - WBC > 12,000 or leukopenia - WBC < 4,000 or > 10% bands
- Tachycardia > 90 beats per minute
- Tachypnea - RR > 20 breaths per minute or PaCO2 , 32mmHg
Source: Merck Manual 2012
Perianal/Scrotal Abscesses only , Without Systemic Illness
Other ( please specify)
Use of terms such as suspected, likely, concern for, or probable (associated with a specific diagnosis that is being evaluated, monitored, or treated as if it exists) are acceptable and can be coded in the inpatient setting, when documented at the
time of discharge.
Thank you,
Sandra Pitts RN
CDI Specialist
[place] [facility]
Please use your independent medical judgment in providing your response.
--- NOTE | 2024-08-25 12:54 | CM ---
Pt for d/c today. Pt seen bedside, initial assessment completed. Admitted for scrotal pain, rectal pain with brown discharge and anal condyloma warts. Pt reports he lives w/ spouse in a 2ST[facility]- 1 step to enter. Pt is independent w/ ambulating and
ADLs, no DME required or identified. Denies SNF/VN/PT hx, pt engaged in OP therapy in the past.
Address, point of contact and insurance verified
PCP: Pt does not have one at this time. Declined CM assistance in obtaining one
Pharmacy: [facility]- [place]
Per pt, spouse will transport at d/c
No CM needs at this time
Plan: Home; no needs
[2024-08-25 12:59] VITALS: BP 140/99
--- NOTE | 2024-08-25 13:05 | PTCARENOTE ---
Pt stating if he is not discharged by 1:00pm that he would be leaving AMA. Wound cultures pending. Hospitalist notified. Discharge order placed. IV site removed. Discharge instructions reviewed with patient. Equipment for Sitz bath provided. Pt left
with own medication. Staff escort via wheelchair to friend's car.
--- NOTE | 2024-08-25 16:27 | W.DCSUMMARY ---
Addendum entered and electronically signed by Rachael Schwab MD 08/27/24 16:29:
Read, reviewed, and agree. See same day progress note for additional details. Time spent coordinating care, DC planning, review of DC plan of care with resident, transition of care, review of records in EMR, med rec, consults, notes, d/w
consultants, nursing, family, and CM
Original Note:
Documented by User: Gurinder Mena MD, Resident 08/25/24 18:30
Discharge Summary
Discharge Data
Date of Admission: 08/23/24
Date of Discharge: 08/25/24
-
Pending Results: Yes (Wound/abscess culture. Biopsy results)
Hospital Course
Discharging Physician : Gurinder Mena MD ; Rachael Schwab MD
Disposition : Home
Primary care physician : Unknown
Principal Discharge diagnosis : Perianal pain secondary to perianal abscess and left anal mass, anal condyloma
Chronic Discharge diagnosis : History of HIV, hyperglycemia, borderline hyponatremia, COPD
Hospital Course : 59-year-old male with a history of HIV and COPD presents to [facility] complaining of painful lumps in his rectal area. He reports this has been going on 'for a long time', perhaps years ago but over the last month the pain
worsened and growths increase over the past two weeks prior to her. He was unable to sit at work because of the pain. He had intermittent bleeding. He denied fevers but admits to chills in the AM. He denied abdominal pain. His bowel movements
were regular and unchanged. Denied nausea or vomiting. His partner states he noticed a decrease in appetite. He currently sees Dr. Avelar of infectious disease for his HIV management. Per patient, his viral loads and cell count have been normal as
of 6 months ago. On exam in the ER, it was noted he had severe anal warts. WBC 13.6 with left shift temp 98.1 F, HR 117, 141/82. Colorectal was consulted. He was made n.p.o. with plan for I&D. CT pelvis with IV contrast was ordered; results
below. He was given 1 L of normal saline and IV Zosyn. He received IV Dilaudid for pain. Given his high blood sugar he was placed on insulin sliding scale. HbA1c was 6.0. He was encouraged top smoking and nicotine patch was provided during his
hospital stay. Colorectal discussed the CT result with the patient. There were 2 abscesses one at the base of scrotum and 1 perianally. There was also concern of an anal mass. Colorectal recommended incision and drainage in the operating room
with possible biopsy of the mass. He is HIV medications were continued during hospital stay viral load and CD4 count was rechecked and infectious disease was consulted. He had NL exam under anesthesia with incision and drainage of perianal
abscess. Biopsy of the anal mass was also taken. Patient remained adamant of going home today. Consulted with ID. Patient states he will leave AMA if not discharged. After discussing with ID prescribed Augmentin 875 mg p.o. twice daily for 10
days and recommended to follow-up with colorectal outpatient. Patient is aware that cultures and biopsy results are still pending.
Important imaging findings : CT pelvis with contrast:
1. Extensive soft tissue thickening and stranding involving the perineum with a 4.7 x 4.6 x 2.6 cm peripherally enhancing collection anteriorly with numerous internal septations consistent with abscess.
This abuts the posterior aspect of the scrotum.
2. Additionally there is a 0.8 x 0.5 cm peripheral enhancing focus along the right aspect of the mid anal canal suspicious for a small perianal abscess.
3. There is extensive thickening and heterogeneity along the left aspect of the anal canal which may related to infection although suspicious for an underlying mass.
Recommend direct visualization for further characterization.
4. There is a 1.5 x 0.9 cm soft tissue nodule along the left anterolateral aspect of the anal canal, in the region of the anorectal junction which may be reactive although a malignant node cannot be
excluded.
Procedure findings : 1) anal exam under anesthesia 2) incision and drainage perianal abscess 3) biopsies anal mass
Operative Findings: 1) perianal/perineal abscess with ? of fisulous disease 2) anal mass involving anal margin/verge and anal canal (8 cm by 4 cm by 4 cm)
No immediate complication
Discharge Plan
-
Patient Disposition: Home (Routine Discharge)
Discharge Diagnosis/Procedures: Perianal pain secondary to perianal abscess and left anal mass
Diet: No restrictions
Activity: No restrictions and As tolerated
Driving Restrictions: As prior to admission
Bathing Restrictions: None
Wound Care: Sitz baths twice a day for 10 minutes at a time, warm water.
Stool softeners as needed.
Daily fiber supplement.
wound cultures and pathology of biopsy pending. It is important that you call for results.
Oxycodone can make you constipated. need to use Senna when taking it.
Instructions: Psyllium, How to take a sitz bath
Referrals:
Pasha Tirado MD [Active] - in two weeks
Jean Avelar MD [Non-Admitting Privileges] -
Prescriptions:
New
oxycodone 5 mg tablet
5 mg PO Q6H PRN (Reason: Pain) Qty: 20 0RF
docusate sodium 100 mg Capsule
100 mg PO BID Qty: 0 0RF
amoxicillin-pot clavulanate 875-125 mg tablet
1 tab PO BID Qty: 20 0RF
senna 8.6 mg capsule
8.6 mg PO HS PRN (Reason: when you take Oxycodone) Qty: 20 0RF
polyethylene glycol 3350 [Miralax] 17 gram powder in packet
17 g PO DAILY Qty: 30 0RF
Continued
etravirine [Intelence] 200 mg Tablet
200 mg PO BID Qty: 0 0RF
Tivicay 50 mg Tablet
50 mg PO BID Qty: 0 0RF
Prezcobix 800-150 mg-mg Tablet
1 tab PO DAILY Qty: 0 0RF
Discharge Orders:
Discharge Patient (As Directed); Ordered 08/25/24
Ordered By: Rachael Schwab
Discharge Date and Time
Discharge Date/Time: 08/25/24 13:11
Print Language: CANADIAN

Documented by User: Rachael Schwab MD 08/27/24 16:23
Discharge Summary
Discharge Data
Date of Admission: 08/23/24
Date of Discharge: 08/27/24
Discharge Plan
-
Patient Disposition: Home (Routine Discharge)
Discharge Diagnosis/Procedures: Perianal pain secondary to perianal abscess and left anal mass
Diet: No restrictions
Activity: No restrictions and As tolerated
Driving Restrictions: As prior to admission
Bathing Restrictions: None
Wound Care: Sitz baths twice a day for 10 minutes at a time, warm water.
Stool softeners as needed.
Daily fiber supplement.
wound cultures and pathology of biopsy pending. It is important that you call for results.
Oxycodone can make you constipated. need to use Senna when taking it.
Instructions: Psyllium, How to take a sitz bath
Referrals:
Pasha Tirado MD [Active] - in two weeks
Jean Avelar MD [Non-Admitting Privileges] -
Prescriptions:
New
oxycodone 5 mg tablet
5 mg PO Q6H PRN (Reason: Pain) Qty: 20 0RF
docusate sodium 100 mg Capsule
100 mg PO BID Qty: 0 0RF
amoxicillin-pot clavulanate 875-125 mg tablet
1 tab PO BID Qty: 20 0RF
senna 8.6 mg capsule
8.6 mg PO HS PRN (Reason: when you take Oxycodone) Qty: 20 0RF
polyethylene glycol 3350 [Miralax] 17 gram powder in packet
17 g PO DAILY Qty: 30 0RF
Continued
etravirine [Intelence] 200 mg Tablet
200 mg PO BID Qty: 0 0RF
Tivicay 50 mg Tablet
50 mg PO BID Qty: 0 0RF
Prezcobix 800-150 mg-mg Tablet
1 tab PO DAILY Qty: 0 0RF
Discharge Orders:
Discharge Patient (As Directed); Ordered 08/25/24
Ordered By: Rachael Schwab
Discharge Date and Time
Discharge Date/Time: 08/25/24 13:11
Print Language: CANADIAN
--- NOTE | 2024-08-25 21:24 | W.PN.CRS1 ---
Addendum entered and electronically signed by Pasha Tirado MD 08/26/24 12:01:
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
Original Note:
Today's Communication / Plan
-
Voiding trial
Possible discharge
Follow-up path and cultures
Assessment/Plan
-
POD#1 s/p I&D of perianal abscess and biopsy of associated anorectal mass
Expected postop course.
He is hopeful to be discharged today.
Will remove the Reyna catheter for a voiding trial.
I reviewed wound care, diet, activity, antibiotics and follow-up. All questions answered.
Final path pending.
Subjective Data
Subjective Data
Date of Service: August 25, 2024
Still some rectal pressure but improved since surgery.
Objective Data
-
Vital Signs
Temp Pulse Resp BP Pulse Ox
98.0 F 99 18 140/99 96
08/25/24 12:59 08/25/24 12:59 08/25/24 12:59 08/25/24 12:59 08/25/24 12:59
Intake & Output
08/24/24 08/25/24 08/26/24
06:59 06:59 06:59
Intake Total 1780 / 1780 1919
Output Total 200 / 300 2325 / 2325 300 / 300
Balance 1580 / 1480 -405 / -405 -300 / -300
Intake:
Oral fluids 480 / 480 1919
IV fluids (Total) 1200 / 1200
IV piggybacks 100 / 100
Output:
Urine, Reyna 1350 / 1350
Urine, Voided 200 / 300 975 / 975 300 / 300
Other:
How many times incontinent 1
SMALL amount urine
Lab Results
08/25/24 06:58
08/25/24 06:58
Physical Exam
-
General: No Acute Distress
Abdomen: Soft, Non Distended and Non Tender
Rectal: Other (the dressing and packing was removed. The wound is clean and there is no bleeding.)
Extremities: No Calf Tenderness
--- NOTE | 2024-08-26 09:53 | PN.CDI ---
CDI
- -
CDI:
Physician Documentation Request
Admit Date: 08/23/24 14:43
Dear Doctor Celestino,
Please review the following and provide your response in the progress notes.
Clinical Indicators:
The diagnosis of Invasive squamous carcinoma was included in the signed (path report 08/26)
Additional clinical indicators in the chart include:
Pt admitted with scrotal/perianal abscess/ S/p drainage 08/24 / biopsy of associated anorectal mass
Please indicate in your progress notes if you are in agreement that the above diagnosis is valid for this patient:
____ -Invasive squamous carcinoma (anorectal ) is a valid diagnosis (Please include it in your progress notes)
____ -Invasive squamous carcinoma (anorectal) is not a valid diagnosis for this patient
____ - Other ( please specify)
Use of terms such as suspected, likely, concern for, or probable are acceptable for a diagnosis that is being evaluated, monitored or treated as if it exists and can be coded in the inpatient setting, when documented at the time of discharge.
Thank you,
Sandra Pitts RN
CDI Specialist
[place] [employer]
Please use your independent medical judgment in providing your response.
== END 2024-08-25 13:11 | disposition home or self-care (01) | DRG 348 ==
LOC: 1 ACUTE 14:43
PROVIDERS: Clinical Nurse Specialist Family Health; Physician Assistant; Registered Nurse; Surgery; ADMITTING PHYSICIAN Hospitalist; ATTENDING PHYSICIAN Hospitalist; EMERGENCY PHYSICIAN Student in an Organized Health Care Education/Training Program; OTHER PHYSICIAN Internal Medicine Infectious Disease; OTHER PHYSICIAN Surgery
PROC: 0D9Q0ZZ Drainage of Anus, Open Approach (ICD-10-PCS; 2024-08-23)
PROC: 0DBQ3ZX Excision of Anus, Percutaneous Approach, Diagnostic (ICD-10-PCS; 2024-08-23)
PROC: 0DBQ0ZX Excision of Anus, Open Approach, Diagnostic (ICD-10-PCS; 2024-08-23)
DX: C21.1 Malignant neoplasm of anal canal (principal); E87.1 Hypo-osmolality and hyponatremia; K61.0 Anal abscess; L02.215 Cutaneous abscess of perineum; N49.2 Inflammatory disorders of scrotum; A63.0 Anogenital (venereal) warts; F17.210 Nicotine dependence, cigarettes, uncomplicated; Z21 Asymptomatic human immunodeficiency virus [HIV] infection status; J44.9 Chronic obstructive pulmonary disease, unspecified; F10.90 Alcohol use, unspecified, uncomplicated; K62.89 Other specified diseases of anus and rectum; N50.82 Scrotal pain; R73.9 Hyperglycemia, unspecified
CPT/HCPCS: 88305; 72193; 80053; 83036; 85025; 85610; 85730; 86361; 86850; 86900; 86901; 87070; 87075; 87077; 87186; 87205; 87536; 88341; 88342; 99285; 99406; Q9967

== ENCOUNTER → 2024-09-08 14:23 | Outpatient (REF) | payer BC, SELFPAY | LOC: RAD 14:23 | PROVIDERS: ATTENDING PHYSICIAN Surgery | DX: C21.1 Malignant neoplasm of anal canal (principal) | CPT/HCPCS: 71260; 74160; Q9967 ==

== ENCOUNTER 2024-09-20 06:24 | Day surgery (SDC) | payer BC, SELFPAY ==
--- NOTE | 2024-09-19 16:30 | PTCARENOTE ---
Abn ECG, Dr Sheikh made aware, Patient ok to proceed if stable. Amanda at Dr. Tirado's office made aware.
[2024-09-20 13:59] VITALS: BP 160/88; BMI 21.1
[2024-09-20] MEDS: NORMOSOL-R/PLASMALYTE-A 1000 IV (14:08)
[2024-09-20 14:10] VITALS: BMI 21.1
[2024-09-20 17:15] VITALS: BP 132/58
[2024-09-20 17:30] VITALS: BP 127/63
[2024-09-20 17:45] VITALS: BP 130/64
[2024-09-20 18:00] VITALS: BP 134/63
[2024-09-20 18:15] VITALS: BP 146/78
== END 2024-09-20 18:25 | disposition home or self-care (01) ==
LOC: SDS 06:24
PROVIDERS: ATTENDING PHYSICIAN Surgery
PROC: 0JH63WZ Insertion of Totally Implantable Vascular Access Device into Chest Subcutaneous Tissue and Fascia, Percutaneous Approach (ICD-10-PCS; 2024-09-20)
DX: C21.0 Malignant neoplasm of anus, unspecified (principal)
CPT/HCPCS: 36561; 71045; 76000; 93005; C1788

== ENCOUNTER → 2024-09-21 09:16 | Outpatient (REF) | payer BC, SELFPAY | LOC: MRI 3T 09:16 | PROVIDERS: ATTENDING PHYSICIAN Radiology Radiation Oncology | DX: C21.1 Malignant neoplasm of anal canal (principal) | CPT/HCPCS: 72197; A9575 ==

== ENCOUNTER → 2024-09-22 12:55 | Outpatient (REF) | payer BC, SELFPAY | LOC: PET 12:55 | PROVIDERS: ATTENDING PHYSICIAN Radiology Radiation Oncology | DX: C21.1 Malignant neoplasm of anal canal (principal) | CPT/HCPCS: 78815; A9552 ==

== ENCOUNTER 2024-10-05 14:40 | Inpatient (IN) | payer BC, SELFPAY ==
[2024-10-05] VITALS (7 sets, daily range): BP systolic 114–140; BP diastolic 48–74; BMI 20.6; BMI 19.6
[2024-10-05 12:58] LABS: COVID-19 Antigen Negative (Negative)
--- NOTE | 2024-10-05 13:00 | ED.GENMED ---
History of Present Illness
General
Chief Complaint: Breathing Problem
Time Seen by Provider: 10/05/24 12:31
History of Present Illness
History of Present Illness:
Patient is a 59-year-old male with a history of HIV that is well-controlled, anal rectal cancer currently on chemotherapy and radiation therapy who presents to the emergency department with cough and shortness of breath. His had a flulike
illness last week. About 1 week ago patient endorses feeling sick with congestion and worsening cough. He endorses chills without objective fever. Feels short of breath. Denies leg swelling. Denies chest pain.
Past History
Past History
ED Past Medical History: COPD and Other (HIV)
Social History
Tobacco: Smoker
Alcohol: Occasional
Personal:
Living: with family
Phy Exam
Physical Exam
Physical Exam:
GENERAL APPEARANCE: Mild respiratory distress with audible rhonchi
EYES lids/conjunctiva normal
EARS/NOSE/THROAT Mucous membranes moist, uvula midline without oral pharyngeal erythema, exudate or swelling
HEAD/NECK normocephalic atraumatic, neck is supple.
RESPIRATORY diffuse wheezing, rhonchi present bilaterally
CARDIAC regular tachycardia
ABDOMINAL Soft, ND/NT. No pulsatile masses on exam, rebound tenderness, Thakkar sign or pain over Mcburney's point.
MUSCLES/EXTREMITIES No abnormal range of motion, no swelling.
SKIN Warm, pink and dry. No rashes
NEUROLOGICAL Speech is clear and appropriate. Normal level of consciousness. 5/5 strength in all extremities.
PSYCH Normal mood and affect. Judgement/competence is appropriate
Scores
Heart Failure Risk
Heart Failure Risk Score: Not Applicable
Course
Orders/Labs/Results
Orders:
Orders
10/05/24 12:10
Electrocardiogram (*1) Urgent
Reason for Study: Other
Other Reason for Exam: Respiratory Distress
EKG- Treatment ONCE
CR Chest - 2 Views Urgent
Comment:
Reason For Exam: respiratory distress
10/05/24 12:26
COVID-19 Antigen Urgent
Source: Nasal Swab
Influenza A+B Rapid Molecular Urgent
PEDRO LUIS Source: Nasal Swab
Specimen Description:
10/05/24 12:27
Complete Blood Count/With Diff Urgent
Comprehensive Metabolic Panel Urgent
10/05/24 12:59
Albuterol Nebs [Ventolin Nebules] 2.5 mg INH R NOW STA
Azithromycin 500 mg/250 ml [Zithromax Infusion] 500 mg in 250 ml IV NOW
Ipratropium/Albuterol Sulfate [Duoneb] 3 ml INH R NOW STA
MethylPREDNISolone PF [Solu-Medrol Pf] 125 mg IV NOW STA
10/05/24 13:02
0.9% Sodium Chloride 500 ml [Nss] 500 ml IV BOLUS
10/05/24 13:53
Cefepime HCl [Maxipime] 2,000 mg IV NOW STA
10/05/24 14:07
Albuterol Nebs [Ventolin Nebules] 2.5 mg .ROUTE .K-MED ONE
10/05/24 14:15
Blood Culture Q30M
PEDRO LUIS Source: Blood/Venous
Specimen Description:
10/05/24 14:19
Lactate Level [Lactic Acid] Urgent
Blood Culture Q30M
PEDRO LUIS Source: Blood/Venous
Specimen Description:
10/05/24 14:24
Albuterol Nebs [Ventolin Nebules] 2.5 mg INH R NOW STA
10/05/24 14:26
Admit/Transfer Patient As Directed
Co-Sign Provider:
Level of Care: Inpatient admission
Assign to:: Medical/Surgical
Physician / Group: hospitalist
Diagnosis: COPD exacerbation
Reason for Hospitalization: COPD exacerbation
Expected length of stay greater than two midnights?: Yes
ELOS- Estimated Length of Stay in days: 3
I certify the patient meets the requirements for IP care: Yes
Code Status As Directed
Resuscitation Status: Full Code
10/05/24 14:29
PRN Pain Medication Management As Directed
May give lesser potent ordered pain med per pt: Yes
preference::
Protocol:: Medication orders for pain may be administered in a
manner that supports deferring to patient preference
when the pt is:
- Requesting an ordered lesser potent pain medication.
Least to most potent pain medications are defined
as: acetaminophen < NSAID < tramadol < opioids
(morphine, oxycodone, hydromorphone).
- Requesting a lesser dose of the same medication IF
ORDERED.
- Requesting a less intrusive route of administration
if both routes are prescribed by the provider (PO <
IV).
Abnormal Lab Results
10/05/24
12:27
WBC 1.4 L* 10^3/uL
(4.8-10.8)
RBC 4.07 L 10^6/uL
(4.70-6.10)
Hgb 12.0 L g/dL
(13.0-18.0)
Hct 34.7 L %
(39.0-52.0)
Plt Count 76 L 10^3/uL
(130-400)
Absolute Neuts (auto) 0.9 L* 10^3/uL
(1.4-6.5)
Absolute Lymphs (auto) 0.3 L 10^3/uL
(1.2-3.4)
Immature Gran % 0.7 H %
(0-0.5)
Monocytes % 12.7 H %
(1.7-9.3)
Sodium 128 L mmol/L
(135-145)
Chloride 92 L mmol/L
(98-107)
BUN 23 H mg/dl
(9-20)
Glucose 139 H mg/dl
(70-99)
10/05/24 12:27
10/05/24 12:27
Vital Signs
Initial and Last Documented VS:
Initial Vital Signs
Temp Pulse Resp BP Pulse Ox
99.9 F 122 16 120/66 98
10/05/24 12:20 10/05/24 12:20 10/05/24 12:20 10/05/24 12:20 10/05/24 12:20
Last Documented Vital Signs
Temp Pulse Resp BP Pulse Ox
99.4 F 114 22 133/63 95
10/05/24 13:35 10/05/24 13:37 10/05/24 13:37 10/05/24 13:31 10/05/24 13:38
*Critical Care Note
Total Time (30-74mins, 75-104mins- exclusive of procedures): Not Applicable
ED Attending Note
ED Attending Note
ED Attending Note:
hx of HIV on HAART (CD4 in 08/23 was 239), anal cancer on chemo and radiation last dose was 1 week ago , COPD
presents with wheezing, sob, cough worsening over past few days
t 99.9. He is saturating around 93-94% on RA
he is tachypneic with rales and rhonchi and wheezing throughout R lung and some in L lung
he is neutropenic with ANC of 900
labs also with sodium of 128 -- patient notes very poor PO intake from mouth pain
CXR without any obvious abnormality
treating for COPD and pneumonia clinically
Given IVF, Cefepime/azithromycin, given solumedrol and nebs
-
Portions of this chart may have been created with voice recognition software.� Occasional wrong word or��sound alike� substitutions may have occurred due to the inherent limitations of voice recognition software.
Discharge Plan
Departure
Patient Disposition: Admit
Date of Disposition: 10/05/24
Time of Disposition: 14:13
Presentation/result/management discussed w/ accepting MD/DO: Hospitalist
Discharge Problem:
Pneumonia, Acute exacerbation of chronic obstructive pulmonary disease, Neutropenia, Acute hyponatremia
Interventions
Interventions:
*Risk Screen - Suicide Last Done: 10/05/24 12:20
*General Assessment Last Done: 10/05/24 14:26
*Neglect/Abuse Screening Last Done: 10/05/24 12:20
*ED- Fall Risk Assessment Last Done: 10/05/24 14:26
*ED COVID-19 Vaccine History Last Done: 10/05/24 14:26
ED- Cardiac Assessment Last Done: 10/05/24 13:38
ED- Pulmonary Assessment Last Done: 10/05/24 13:38
[2024-10-05 13:01] LABS: ALT (SGPT) 20 U/L (0-50); AST (SGOT) 40 U/L (17-59); Albumin 3.8 g/dl (3.5-5.0); Alkaline Phosphatase 66 U/L (38-126); Blood Urea Nitrogen 23 mg/dl (9-20); Carbon Dioxide 27 mmol/L (22-30); Chloride 92 mmol/L (98-107); Glucose 139 mg/dl (70-99); Potassium 3.9 mmol/L (3.5-5.1); Sodium 128 mmol/L (135-145); Total Bilirubin 0.5 mg/dl (0.2-1.3); Total Protein 7.1 g/dl (6.3-8.2); eGFR > 60.00
[2024-10-05] MEDS: NSS 500 IV (13:13)
[2024-10-05] MEDS: ZITHROMAX INFUSION 250 IV (13:13)
[2024-10-05] MEDS: SOLU-MEDROL PF 125 MG IV (13:14)
[2024-10-05] MEDS: VENTOLIN NEBULES 2.5 MG INH ×2 (13:15→14:24)
[2024-10-05] MEDS: DUONEB 3 ML INH ×2 (13:15→20:25)
[2024-10-05 13:29] LABS: Hematocrit 34.7 % (39.0-52.0); Mean Corp Hgb Conc. 34.6 g/dL (33.0-37.0); Mean Corpuscular Hgb 29.5 pg (27.0-31.0); Mean Corpuscular Volume 85.3 fL (80.0-94.0); Red Blood Cell Count 4.07 10^6/uL (4.70-6.10); Red Cell Dist. Width 12.8 % (11.5-14.5); White Blood Cell Count 1.4 10^3/uL (4.8-10.8)
[2024-10-05 13:46] LABS: Mean Platelet Volume 10.1 fL (7.4-10.4); Platelet Count 76 10^3/uL (130-400)
[2024-10-05 13:48] LABS: % Basophils 0.7 % (0-2); % Immature Granulocytes 0.7 % (0-0.5); % Lymphocytes 22.5 % (20.5-51.1); % Monocytes 12.7 % (1.7-9.3); % Neutrophils 63.4 % (42.2-75.2); Absolute Lymphocytes 0.3 10^3/uL (1.2-3.4); Absolute Monocytes 0.2 10^3/uL (0.1-0.6); Absolute Neutrophils 0.9 10^3/uL (1.4-6.5); Nucleated Red Blood Cells % 0 % (-)
[2024-10-05] MEDS: MAXIPIME 2000 MG IV (14:20)
[2024-10-05] MEDS: NSS 1000 IV (17:45)
--- NOTE | 2024-10-05 18:16 | PTCARENOTE ---
Pt received from ED. Walked to bed from stretcher without assistance. Pt AAOx3. VSS. Complaining of pain in throat 12/06. Magic mouthwash ordered and being sent from pharmacy. Oriented to unit by this RN. Pt sent to CAT scan. Will continue to
monitor.
[2024-10-05] MEDS: MAGIC OR MIRACLE MOUTHWASH 5 ML PO (18:36)
[2024-10-05] MEDS: LOVENOX 40 MG SC (18:36)
--- NOTE | 2024-10-05 19:16 | HPS.HSE ---
Addendum entered and electronically signed by Danilo Falcon MD 10/05/24 23:10:
Attending Addendum-
I performed a history and physical exam of the patient and discussed his management with the resident. I reviewed the resident's note and agree with the documented findings and plan of care CC/HPI- presents to ED for worsening SOB VILLANUEVA wheezing and
palpitations. Recently started chemo and radiation for new dx anal ca. Patient denies hemoptysis fevers chills. Partner with recent illness. Full 12 point ROS reviewed and negative except as documented Exam- vitals reviewed in EMR GEN-mod resp
distress heart tachycardic lungs diffuse scattered wheeze poor air entry abd soft LE no edema
Plan:
#Acute PE
- stat CT chest ordered - pulmonary embolism in the right lung extending from the distal right main pulmonary artery into segmental branches and also possibly within peripheral subsegmental left lower lobe branches.
- No findings to suggest right heart strain.
- Minor likely chronic partial T9, T8 and especially T7 vertebral compression fractures
- start hep gtt stat due to thrombocytopenia- d/w heme onc
- transition to NOAC- 10/06
- not hypotensive
- Oxygen if SpO2<88%
- check CBC in am monitor plts/hb closely
# AE COPD
- start duonebs ATC
- start solumedrol
- maintenance med on DC
# Chronic T7-9 comp fx
- PT OT
- pain control
# Tobacco Abuse
- start geronimo patch- advised to quit
#Pancytopenia
- Likely secondary to chemotherapy
- Neutrophil count >500
- Continue to monitor cell counts
- Consult heme-onc
- check CBC In am
# Hyponatremia
- Likely in the setting of hypovolemia, poor oral intake/GI loss
- Started IV fluids
- Continue to monitor
# Anal SCC
- recently diagnosed 07/2024
- Consult heme-onc
- Patient follows with [facility]
- Completed first cycle of chemoradiation last Thursday
# History of HIV
- Continue home etravirine, Prezcobix, Tivicay
Dispo eventual DC home with partner when able
CODE STATUS full code
ACP
Patient consented to discuss, was alone, time spent explanation of advance directives, changes in health status, patient�s health care wishes if the patient becomes unable to make health decisions, goals of care, code status, and prognosis 'ill stay
full code for now' - 16 minutes
Time spent coordinating care, review of plan of care with resident, personally reviewed previous records in EMR, med rec, labs, radiology, d/w nursing/heme onc, family total time documented is exclusive of any additional time listed that was spent
in advance care planning discussion -� 75 minutes
Original Note:
Family Physician
-
Family Physician: * NONE
Chief Complaint
-
Shortness of breath and cough
History of Present Illness
Patient is a 59-year-old active smoker male with past medical history of HIV on HAART, anal cancer (diagnosed in July 2024) on chemoradiation (completed first cycle this past Thursday), COPD (on Primatene as needed) who presented to the emergency
department with complaints of cough and shortness of breath. Patient reports has not been feeling well since the weekend, however symptoms have progressively worsened for the past 1-2 days. Denies palpitations, chest pain, fever, nausea, urinary
symptoms. Notes had 1 episode of vomiting last week while on chemotherapy and intermittent diarrhea/constipation for few days following completion of chemotherapy but has had no change in bowel movements since then. Patient's partner had flulike
symptoms last week, now resolved. Patient denies recent travel.
Initial lab work in the ED: White count 1.4 (neutrophils 900), hemoglobin 12, platelets 76, sodium 128, potassium 3.9, creatinine 1.3, lactic acid 1.0, LFTs within normal level. Chest x-ray showed no acute findings. Patient was started on DuoNebs,
IV fluid, Solu-Medrol and was given 1 dose cefepime and azithromycin for possible COPD exacerbation versus pneumonia.
Patient is not hypoxic on room air, saturating ~93-95%. No fever detected in the ED. EKG normal sinus rhythm.
Medical History
Past Medical History
Past Medical History: Reports Cancer (Anal cancer), COPD and Other (HIV)
Past Surgical History: Reports Other ( Port-A-Cath)
Social History
Tobacco: Smoker
Alcohol: Occasional
Drug: None
Personal:
Living: With Family
Family History
Family History: Not pertinent
Allergies / Home Medications
Allergies reflects when Allergies were last updated in [facility].
Home Medications with original date entered in [facility]
Allergy/Medication List:
Allergies
Allergy/AdvReac Type Severity Reaction Status Date / Time
No Known Allergies Allergy Verified 10/05/24 12:20
Home Medications
darunavir 800 mg-cobicistat 150 mg tablet (Prezcobix) 1 tab PO DAILY hiv #0 tabs 08/25/24
dolutegravir 50 mg tablet (Tivicay) 50 mg PO BID hiv #0 tabs 08/25/24
etravirine 200 mg tablet (Intelence) 200 mg PO BID hiv #0 tabs 08/25/24
Magic Mouthwash 5 ml mucous membrane QIDPRN PRN mild pain 10/05/24
guaifenesin 200 mg/5 mL oral liquid 200 mg PO DAILYPRN PRN cough 10/05/24
ondansetron HCl 8 mg tablet 8 mg PO [id number] PRN nausea 10/05/24
Review of Systems
-
History Source: Patient
A 12 point ROS was completed and negative except as noted: Yes
Constitutional: Reports Weight Loss
EENT: Reports Mouth Pain
Respiratory: Reports Cough and Trouble Breathing
Cardiac: Reports No Symptoms
Abdomen/GI: Reports Vomiting, Diarrhea and Constipated
: Reports No Symptoms
Musculoskeletal: Reports No Symptoms
Skin: Reports No Symptoms
Neurological: Reports No Symptoms
Endocrine: Reports No Symptoms
Hematologic/Lymphatic: Reports No Symptoms
Psych: Reports No Symptoms
Physical Exam
Vital Signs
Vital Signs
Temp Pulse Resp BP Pulse Ox
98.1 F 108 18 114/70 97
10/05/24 17:23 10/05/24 17:23 10/05/24 17:23 10/05/24 17:23 10/05/24 18:13
Physical Exam
General: Well Developed, Well Nourished, Appears in Distress and Other (Cannot speak in full sentences); No Fever
HEENT: NormoCephalic
Respiratory: Wheezes (Diffuse bilateral wheezing); No Accessory Resp Muscle Use
Cardiac: S1/S2, Regular Rhythm and Tachycardia
GI: Soft, Non Tender, Non Distended and Normal Bowel Sounds
Musculoskeletal: No Clubbing, No Cyanosis and No Edema
Skin: Warm and Dry
Neuro: Awake, Alert, Oriented and AO x 3
Psych: Calm
Laboratory Results
-
10/05/24 12:27
Laboratory Results
Lactic Acid 1.0 mmol/L (0.7-2.0) 10/05/24 14:19
Total Bilirubin 0.5 mg/dl (0.2-1.3) 10/05/24 12:27
AST 40 U/L (17-59) 10/05/24 12:27
ALT 20 U/L (0-50) 10/05/24 12:27
Alkaline Phosphatase 66 U/L (38-126) 10/05/24 12:27
Impression/Plan
-
IMPRESSION:
59-year-old male with past medical history of HIV, anal cancer on chemoradiation, COPD presenting with shortness of breath and cough.
PLAN:
#Acute shortness of breath
- Patient is tachypneic, tachycardic, hx of cancer --> rule out pulmonary embolism
- Other likely diagnoses COPD exacerbation versus viral infection vs bacterial pneumonia
- Chest x-ray no acute findings
- No fever detected
- Lactic acid normal
- Hold off on antibiotics
- Blood cultures pending
- Wheezing on exam, continue DuoNebs and Solu-Medrol
- Oxygen if SpO2<88%
#Pulmonary embolism
- PE study positive for pulmonary embolism. Patient is thrombocytopenic, was given Lovenox shot for DVT prophylaxis prior to CT. Discussed case with on-call power plant manager, Dr. Jane. Recommended starting heparin gtt.
- Rule out DVT --> bilateral lower extremity Doppler
#Pancytopenia
- Likely secondary to chemotherapy
- Neutrophil count >500
- Continue to monitor cell counts
- Consult heme-onc
# Hyponatremia
- Likely in the setting of hypovolemia, poor oral intake/GI loss
- Started IV fluids
- Continue to monitor
- Check Legionella antigen
# History of anal cancer
- Consult heme-onc
- Patient follows with Dr. [facility] at [facility]
- Completed first cycle of chemoradiation last Thursday
# History of HIV
- Continue home meds
# History of COPD
- Wheezing on exam, continue DuoNebs and Solu-Medrol
CODE STATUS full code
[2024-10-05] MEDS: HEPARIN 25000 UNITS/250 ML IV (20:17)
[2024-10-05 20:39] LABS: Hematocrit 27.7 % (39.0-52.0); Hemoglobin 9.9 g/dL (13.0-18.0); Mean Corp Hgb Conc. 35.7 g/dL (33.0-37.0); Mean Corpuscular Hgb 30.1 pg (27.0-31.0); Mean Corpuscular Volume 84.2 fL (80.0-94.0); Mean Platelet Volume 9.4 fL (7.4-10.4); Platelet Count 56 10^3/uL (130-400); Red Blood Cell Count 3.29 10^6/uL (4.70-6.10); Red Cell Dist. Width 12.9 % (11.5-14.5)
[2024-10-05 20:42] LABS: APTT 27.1 Sec (23.4-35.0)
[2024-10-05] MEDS: NON-FORMULARY ITEM 1 TABLET PO (22:18)
[2024-10-05] MEDS: TIVICAY 50 MG PO (22:18)
[2024-10-05] MEDS: NON-FORMULARY ITEM 200 MG PO (22:18)
[2024-10-06] MEDS: MAGIC OR MIRACLE MOUTHWASH 5 ML PO ×2 (00:25→10:44)
[2024-10-06 02:47] LABS: APTT 128.8 Sec (23.4-35.0)
[2024-10-06 03:32] VITALS: BP 134/64
[2024-10-06 06:40] VITALS: BMI 20.2
[2024-10-06] MEDS: DUONEB 3 ML INH ×4 (07:41→19:24)
--- NOTE | 2024-10-06 08:21 | W.PN.HOSP.TC ---
Addendum entered and electronically signed by Danilo Falcon MD 10/06/24 22:40:
Attending Addendum-I saw and evaluated the patient. I reviewed the resident�s note and agree with findings and plan as documented in the resident�s note. Sub: complains of rectal bleed and mouth pain. 'I always have blood in my stools' States SOB is
greatly improved but still present. Full 12 point ROS reviewed and negative except as documented Exam- vitals reviewed in EMR GEN-NAD heart RRR lungs decreased BS @ bases abd soft LE no edema
Plan:
#Acute PE
- stat CT chest ordered - pulmonary embolism in the right lung extending from the distal right main pulmonary artery into segmental branches and also possibly within peripheral subsegmental left lower lobe branches.
- No findings to suggest right heart strain.
- Minor likely chronic partial T9, T8 and especially T7 vertebral compression fractures
- transition hep gtt -> eliquis loading 10/06-PM
- not hypotensive
- Oxygen if SpO2<88%
- check CBC in am monitor plts/hb closely -
#Left DVT-nonocclusive
- cont eliquis
# AE COPD
- improving
- cont duonebs ATC
- wean solumedrol
- maintenance med on DC
- states he takes Primatene mist?
# Chronic T7-9 comp fx
- PT OT
- pain control
# Tobacco Abuse
- cont geronimo patch- advised to quit
#Pancytopenia
- Likely secondary to chemotherapy
- Neutrophil count >500
- Continue to monitor cell counts
- appreciate heme-onc input
- check CBC In am
# Hyponatremia
- Likely in the setting of hypovolemia, poor oral intake/GI loss
- improving
- DC IV fluids
- Continue to monitor
# Anal SCC
- recently diagnosed 07/2024
- heme-onc input appreciated
- Patient follows with Dr[facility] Cra[facility]
- Completed first cycle of chemoradiation last Thursday
# History of HIV
- Continue home etravirine, Prezcobix, Tivicay
Dispo DC home with partner in am
CODE STATUS full code
Time spent coordinating care, review of plan of care with resident, personally reviewed records in EMR, med rec, consults, notes, labs, radiology, d/w nursing � 53 mins
Original Note:
Today's Communication/Plan
-
Stop heparin gtt @20:00 and transition to Eliquis @20:00 today
Hematology consult
Continue Solu-Medrol and DuoNebs, add budesonide
PT OT
Assessment / Plan
Assessment / Plan
59-year-old active smoker male with past medical history of HIV on HAART, anal cancer (diagnosed in July 2024) that received an initial cycle of 5-fluorouracil and mitomycin, COPD (on Primatene as needed) who presented to the emergency
department with complaints of cough and shortness of breath.
# Acute pulmonary embolism
- PE study: Findings compatible with pulmonary embolism in the right lung extending from the distal right main pulmonary artery into segmental branches and also possibly within peripheral subsegmental left lower lobe branches. No findings to suggest
right heart strain.
- Hemodynamically stable
- Started on heparin gtt, discussed with heme-onc
- Oxygen if SpO2<88%
- Transition to Eliquis today
# COPD exacerbation, likely
- Wheezing on exam, continue DuoNebs and Solu-Medrol
- Add budesonide
# DVT
- Bilateral lower extremity Doppler: Nonocclusive thrombus in the left mid and distal femoral vein.
- Continue anticoagulation
#Pancytopenia
- Likely secondary to chemotherapy
- Neutrophil count >500
- Continue to monitor cell counts
- Consulted heme-onc
- Bleeding precautions
# T7-T9 compression fracture, likely chronic
- Chest CT revealed minor likely chronic partial T9, T8 and especially T7 vertebral compression fractures.
- Pain management
- PT OT eval
# Hyponatremia
- Likely in the setting of hypovolemia, poor oral intake/GI loss
- Started IV fluids --> improved
- Continue to monitor
- Check Legionella antigen
# Stomatitis
- In the setting of cancer treatment
- Dexamethasone swish and spit
# History of anal cancer
- Consulted heme-onc
- Patient follows with Dr. Cra[facility] at [facility]
- Completed first cycle of chemoradiation last Thursday
- Per hematology, reinstate radiation therapy on discharge
# History of HIV
- Continue home meds
# Tobacco Abuse
- Started nicotine patch
- Advised to quit
Anticipated Discharge: 24 - 48 hours
Subjective/Interval History
-
Date of Service: October 06, 2024
Objective Data
-
Labs:
Laboratory Results
10/05/24 10/06/24 10/06/24
20:15 02:17 08:10
WBC 1.0 L*
Hgb 9.9 L
Hct 27.7 L
Plt Count 56 L D
APTT 27.1 128.8 H
Sodium Pending
Potassium Pending
Chloride Pending
Carbon Dioxide Pending
BUN Pending
Creatinine Pending
Glucose Pending
Calcium Pending
10/06/24 10/06/24
08:20 09:00
WBC Pending
Hgb Pending
Hct Pending
Plt Count Pending
APTT Pending
Sodium
Potassium
Chloride
Carbon Dioxide
BUN
Creatinine
Glucose
Calcium
Vital Signs:
Vital Signs
Temp Pulse Resp BP Pulse Ox
97.9 F 111 20 134/64 94
10/06/24 03:32 10/06/24 07:45 10/06/24 07:45 10/06/24 03:32 10/06/24 07:45
I&O
10/05/24 10/06/24 10/07/24
06:59 06:59 06:59
Intake Total 960 / 960
Output Total 450 / 450
Balance 510 / 510
Review of Systems
-
History Source: Patient
Constitutional: Reports No Symptoms
EENT: Reports Mouth Pain
Respiratory: Reports Cough and Trouble Breathing
Cardiac: Reports No Symptoms
Abdomen/GI: Reports No Symptoms
Breast: Reports No Symptoms
Genitourinary: Reports No Symptoms
Musculoskeletal: Reports No Symptoms
Skin: Reports No Symptoms
Neuro: Reports No Symptoms
Endocrine: Reports No Symptoms
Hematologic / Lymphatic: Reports No Symptoms
Allergy / Immunology: Reports No Symptoms
Physical Exam
-
General: Well Developed, Well Nourished, No Apparent Distress and Comfortable
HEENT: Normocephalic
Respiratory: Wheezes and Other (Tachypneic)
Cardiac: Regular Rhythm, S1/S2 and Tachycardic
GI: Soft, Nontender, Nondistended and Normal Bowel Sounds
Genito-urinary: No Costovertebral Tender
Musculoskeletal: No Clubbing, No Cyanosis and No Edema; Negative Edema, Right Lower Extrem or Edema, Left Lower Extrem
Skin: Warm
Neuro: Awake, Alert, Oriented and AO x 3
Psych: Calm
[2024-10-06] MEDS: NSS 1000 IV ×2 (08:40→18:19)
[2024-10-06] MEDS: NON-FORMULARY ITEM 200 MG PO ×2 (08:41→20:08)
[2024-10-06] MEDS: SOLU-MEDROL PF 40 MG IV ×2 (08:42→16:48)
[2024-10-06] MEDS: NON-FORMULARY ITEM 1 TABLET PO (08:43)
[2024-10-06] MEDS: NICODERM TRANSDERMAL TRANSDERM (08:54)
[2024-10-06 09:07] LABS: APTT 71.3 Sec (23.4-35.0)
[2024-10-06 09:10] LABS: Hematocrit 28.7 % (39.0-52.0); Hemoglobin 10.3 g/dL (13.0-18.0); Mean Corp Hgb Conc. 35.9 g/dL (33.0-37.0); Mean Corpuscular Volume 83.7 fL (80.0-94.0); Mean Platelet Volume 9.9 fL (7.4-10.4); Platelet Count 64 10^3/uL (130-400); Red Blood Cell Count 3.43 10^6/uL (4.70-6.10); Red Cell Dist. Width 12.9 % (11.5-14.5); White Blood Cell Count 1.4 10^3/uL (4.8-10.8)
[2024-10-06 09:58] LABS: Blood Urea Nitrogen 18 mg/dl (9-20); Calcium 9.1 mg/dl (8.4-10.2); Carbon Dioxide 24 mmol/L (22-30); Chloride 102 mmol/L (98-107); Estimated Creatinine Clearance 68 ml/min; Glucose 180 mg/dl (70-99); Potassium 3.6 mmol/L (3.5-5.1); Sodium 133 mmol/L (135-145); eGFR > 60.00
[2024-10-06] MEDS: HEPARIN 2400 UNITS IV (10:37)
[2024-10-06] MEDS: MUCINEX 600 MG PO ×2 (10:37→20:08)
[2024-10-06] MEDS: TIVICAY 50 MG PO ×2 (10:38→20:08)
[2024-10-06 10:52] LABS: % Lymphocytes 18.2 % (20.5-51.1); % Monocytes 10.2 % (1.7-9.3); % Neutrophils 71.6 % (42.2-75.2); Absolute Lymphocytes 0.3 10^3/uL (1.2-3.4); Absolute Monocytes 0.1 10^3/uL (0.1-0.6); Nucleated Red Blood Cells % 0 % (-)
[2024-10-06 12:00] VITALS: BP 119/53
--- NOTE | 2024-10-06 13:09 | CON.ONC ---
Impression
Impression
Exacerbation COPD with URI
Pulmonary embolus no evidence of DVT
Anal carcinoma status post initiation of systemic therapy with radiation
Absolute neutropenia resolving ANC 1000 today
Thrombocytopenia as expected post mitomycin/5-FU
Chemo induced stomatitis
Dehydration
Hyponatremia
CD4 count less than 300 when last evaluated
Plan
Plan
Dexamethasone swish and spit
Push fluids
Initiate apixaban loading dose 10 mg twice daily
Reinstate radiation therapy on discharge
Continue pulmonary toilet
Monitor CBC
Patient History
History of Present Illness
Patient is a 59-year-old active smoker male with past medical history of HIV on HAART, anal cancer (diagnosed in July 2024) that received an initial cycle of 5-fluorouracil and mitomycin, COPD (on Primatene as needed) who presented to the
emergency department with complaints of cough and shortness of breath. Patient reports has not been feeling well since the weekend, however symptoms have progressively worsened for the past 1-2 days. Denies palpitations, chest pain, fever, nausea,
urinary symptoms. Notes had 1 episode of vomiting last week while on chemotherapy and intermittent diarrhea/constipation for few days following completion of chemotherapy but has had no change in bowel movements since then. He indicates that he
developed symptoms of upper respiratory tract infection after his partner was ill last week. He has had increasing tenderness mouth and upper esophagus posttreatment suggesting development of stomatitis. He is clearly avoiding drinking affecting
his hydration status.
Past-Medical/Surgical History
Past Medical History
Past Medical History: Anal carcinoma, COPD and Other (HIV)
Past Surgical History: Port placement
Social History
Tobacco: Smoker
Alcohol: Occasional
Drug: None
Personal:
Living: With Family
Family History
Family History: Not pertinent
Patient Medication
�Medication �Instructions �Recorded �Confirmed �Last Taken �Type
darunavir 800 mg-cobicistat 150 mg 1 tab PO DAILY hiv #0 tabs 08/25/24 10/05/24 10/04/24 Rx
tablet (Prezcobix)
dolutegravir 50 mg tablet (Tivicay) 50 mg PO BID hiv #0 tabs 08/25/24 10/05/24 10/04/24 Rx
etravirine 200 mg tablet 200 mg PO BID hiv #0 tabs 08/25/24 10/05/24 10/04/24 Rx
(Intelence)
Magic Mouthwash 5 ml mucous membrane QIDPRN PRN 10/05/24 10/05/24 Unknown History
mild oral pain
guaifenesin 200 mg/5 mL oral liquid 200 mg PO DAILYPRN PRN cough 10/05/24 10/05/24 10/05/24 History
ondansetron HCl 8 mg tablet 8 mg PO [id number] PRN nausea 10/05/24 10/05/24 09/28/24 History
Active Medications
Generic Name Dose Route Start Last Admin
Trade Name Freq PRN Reason Stop Dose Admin
Albuterol/Ipratropium 3 ml 10/05/24 20:00 10/06/24 11:23
Ipratropium 0.5/Albuterol 3 Mg (3 Ml Ampul) INH 3 ml
R QID ALYSSA Administration
Protocol
Bisacodyl 10 mg 10/05/24 17:12
Bisacodyl 10 Mg Rectal Suppository RECTAL 11/02/24 17:11
[id number] PRN
constipation
Budesonide 0.25 mg 10/06/24 13:00
Budesonide (Pulmicort Respules) 0.25 Mg/2 Ml INH
R BID ALYSSA
Protocol
Dolutegravir Sodium 50 mg 10/05/24 20:00 10/06/24 10:38
Dolutegravir (Tivicay) 50 Mg Tablet PO 11/02/24 19:59 50 mg
BID ALYSSA Administration
Guaifenesin 200 mg 10/05/24 17:22
Guaifenesin Oral Solution (200 Mg/10 Ml) Cup PO 11/02/24 17:21
DAILYPRN PRN
cough
Guaifenesin 600 mg 10/06/24 10:00 10/06/24 10:37
Guaifenesin 600 Mg Extended Release Tablet PO 11/03/24 09:59 600 mg
Q12 ALYSSA Administration
Heparin Sodium 4,800 units 10/05/24 19:17
Heparin 80 Units/Kg Rebolus-Do Not Discard IV 11/02/24 19:16
PRN PRN
PTT < OR = 64 seconds
Heparin Sodium 2,400 units 10/05/24 19:20 10/06/24 10:37
Heparin 40 Units/Kg Rebolus-Do Not Discard IV 11/02/24 19:19 2,400 units
PRN PRN Administration
PTT = 64.1 to 72.9 seconds
Heparin Sodium (Porcine) 500 unit 10/05/24 22:00 10/05/24 19:50
Heparin Flush Pf (100 Unit/Ml) 5 Ml Syringe IV 11/02/24 21:59 500 unit
PER PROTOCOL ALYSSA Administration
Sodium Chloride 1,000 mls @ 100 mls/hr 10/05/24 17:12 10/06/24 08:40
Nss IV 1,000 mls
.Q10H ALYSSA Administration
Heparin Sodium 25,000 units in 250 mls @ 0 mls/hr 10/05/24 19:15 10/05/24 20:17
Heparin 95045 Units/250 Ml IV 250 mls
PER PROTOCOL ALYSSA Administration
Protocol
Per Protocol
Methylprednisolone Sodium Succinate 40 mg 10/06/24 08:00 10/06/24 08:42
Methylprednisolone Pf 40 Mg/Ml Vial IV 11/03/24 07:59 40 mg
Q8H ALYSSA Administration
Multi-Ingredient Mouthwash/Gargle 5 ml 10/05/24 17:23 10/06/24 10:44
Magic (Miracle) Mouthwash 90 Ml Bottle PO 5 ml
QIDPRN PRN Administration
mild pain
Nicotine 14 mg 10/06/24 08:00 10/06/24 08:54
Nicotine 14 Mg Patch TRANSDERM 11/03/24 07:59 Not Given
DAILY ALYSSA
Darunavir-Cobicistat 0 tablet 10/05/24 17:12 10/06/24 08:43
[Prezcobix] 800-150 PO 11/02/24 17:11 1 tablet
1 Po Daily DAILY ALYSSA Administration
Etravirine [ 0 mg 10/05/24 20:00 10/06/24 08:41
Intelence] 200 Mg Po PO 11/02/24 19:59 200 mg
Bid BID ALYSSA Administration
Ondansetron HCl 8 mg 10/05/24 17:24
Ondansetron 4 Mg Tablet PO 11/02/24 17:23
[id number] PRN
nausea
Polyethylene Glycol 17 grams 10/05/24 17:12
Polyethylene Glycol Powder 17 Grams Packet PO 11/02/24 17:11
DAILYPRN PRN
constipation
Senna/Docusate Sodium 1 tablet 10/05/24 17:12
Docusate W/Senna (Cheryl-Colace) Tablet PO 11/02/24 17:11
BIDPRN PRN
constipation
Sodium Chloride 0 flush 10/05/24 18:00
Sodium Chloride 0.9% (Flush) Syringe IV 11/02/24 17:59
PER PROTOCOL ALYSSA
Review of Systems
-
Unremarkable other than nonproductive cough and malaise.
Physical Exam
-
Physical Exam
General: Well Developed, Well Nourished in no acute distress
HEENT: No scleral icterus
Respiratory: Wheezes (Diffuse bilateral wheezing); tubular rhonchi
Cardiac: S1/S2, Regular Rhythm
GI: Soft, Non Tender, Non Distended and Normal Bowel Sounds
Musculoskeletal: No Clubbing, No Cyanosis and No Edema
Skin: Warm and Dry
Neuro: Awake, Alert, Oriented and AO x 3
Psych: Calm
Labs
Lab Results
WBC 1.4 10^3/uL (4.8-10.8) L* 10/06/24 08:44
RBC 3.43 10^6/uL (4.70-6.10) L 10/06/24 08:44
Hgb 10.3 g/dL (13.0-18.0) L 10/06/24 08:44
Hct 28.7 % (39.0-52.0) L 10/06/24 08:44
MCV 83.7 fL (80.0-94.0) 10/06/24 08:44
MCH 30.0 pg (27.0-31.0) 10/06/24 08:44
MCHC 35.9 g/dL (33.0-37.0) 10/06/24 08:44
RDW 12.9 % (11.5-14.5) 10/06/24 08:44
Plt Count 64 10^3/uL (130-400) L 10/06/24 08:44
MPV 9.9 fL (7.4-10.4) 10/06/24 08:44
Abs Immat Gran (auto) 0.0 10^3/uL (0-0.05) 10/06/24 08:44
Absolute Neuts (auto) 1.0 10^3/uL (1.4-6.5) L 10/06/24 08:44
Absolute Lymphs (auto) 0.3 10^3/uL (1.2-3.4) L 10/06/24 08:44
Absolute Monos (auto) 0.1 10^3/uL (0.1-0.6) 10/06/24 08:44
Absolute Eos (auto) 0.0 10^3/uL (0-0.7) 10/06/24 08:44
Absolute Basos (auto) 0.0 10^3/uL (0-0.2) 10/06/24 08:44
Immature Gran % 0.0 % (0-0.5) 10/06/24 08:44
Neutrophils % 71.6 % (42.2-75.2) 10/06/24 08:44
Lymphocytes % 18.2 % (20.5-51.1) L 10/06/24 08:44
Monocytes % 10.2 % (1.7-9.3) H 10/06/24 08:44
Eosinophils % 0.0 % (0-6) 10/06/24 08:44
Basophils % 0.0 % (0-2) 10/06/24 08:44
Creatinine 1.0 mg/dL (0.7-1.3) 10/06/24 08:44
Vital Signs
Vital Signs
Temp Pulse Resp BP Pulse Ox
97.9 F 101 18 119/53 94
10/06/24 12:00 10/06/24 12:00 10/06/24 12:00 10/06/24 12:00 10/06/24 12:00
[2024-10-06] MEDS: PULMICORT INH (13:39)
[2024-10-06 16:00] VITALS: BP 122/72
[2024-10-06] MEDS: DECADRON 1 MG PO (16:48)
--- NOTE | 2024-10-06 16:49 | CM ---
global manager reviewed patient's chart and met with patient and patient lives with his spouse in a 2 story home with one step to enter, patient is independent with adl's and ambulation, no dme, patient drives.
PCP: None
[facility] in [place].
Plan; Home no needs when stable.
[2024-10-06 17:05] LABS: APTT 108.4 Sec (23.4-35.0)
[2024-10-06 19:20] VITALS: BP 122/64
[2024-10-06] MEDS: PULMICORT 0.25 MG INH (19:24)
[2024-10-06] MEDS: ROXICODONE 5 MG PO (19:25)
[2024-10-06] MEDS: ELIQUIS 10 MG PO (20:08)
--- NOTE | 2024-10-06 20:25 | PTCARENOTE ---
Heparin gtt stopped and on hold per MD order. Eliquis given.
[2024-10-06] MEDS: NSS IV (22:45)
[2024-10-06 23:09] VITALS: BP 117/66
[2024-10-07] MEDS: ROXICODONE 5 MG PO ×3 (01:00→16:54)
[2024-10-07 03:25] VITALS: BP 109/71
--- NOTE | 2024-10-07 04:10 | VATNOTE ---
0350-PT REQUESTED NOT TO HAVE LABS DRAWN AT THIS TIME. TOO EARLY IN THE MORNING PER PT. PCN AWARE. WILL DRAW AM LABS AT 0800.
[2024-10-07 07:05] VITALS: BP 146/90
[2024-10-07] MEDS: PULMICORT 0.25 MG INH (07:46)
[2024-10-07] MEDS: DUONEB 3 ML INH ×3 (07:47→15:33)
[2024-10-07 08:22] LABS: Hematocrit 27.2 % (39.0-52.0); Hemoglobin 9.5 g/dL (13.0-18.0); Mean Corp Hgb Conc. 34.9 g/dL (33.0-37.0); Mean Corpuscular Hgb 29.9 pg (27.0-31.0); Mean Corpuscular Volume 85.5 fL (80.0-94.0); Mean Platelet Volume 9.8 fL (7.4-10.4); Platelet Count 58 10^3/uL (130-400); Red Blood Cell Count 3.18 10^6/uL (4.70-6.10); Red Cell Dist. Width 13.1 % (11.5-14.5); White Blood Cell Count 1.2 10^3/uL (4.8-10.8)
[2024-10-07] MEDS: NSS 1000 IV (08:31)
[2024-10-07] MEDS: NICODERM TRANSDERMAL 14 MG TRANSDERM (08:31)
[2024-10-07] MEDS: SOLU-MEDROL PF 40 MG IV (08:36)
[2024-10-07] MEDS: ELIQUIS 10 MG PO (08:38)
[2024-10-07] MEDS: MUCINEX 600 MG PO (08:38)
[2024-10-07] MEDS: TIVICAY 50 MG PO (08:38)
[2024-10-07] MEDS: NON-FORMULARY ITEM 200 MG PO (08:40)
[2024-10-07 08:41] LABS: Blood Urea Nitrogen 17 mg/dl (9-20); Calcium 9.1 mg/dl (8.4-10.2); Carbon Dioxide 27 mmol/L (22-30); Chloride 105 mmol/L (98-107); Estimated Creatinine Clearance 68 ml/min; Glucose 155 mg/dl (70-99); Potassium 3.9 mmol/L (3.5-5.1); Sodium 135 mmol/L (135-145); eGFR > 60.00
[2024-10-07] MEDS: NON-FORMULARY ITEM 1 TABLET PO (08:41)
[2024-10-07 08:45] LABS: % Basophils 0.8 % (0-2); % Immature Granulocytes 0.8 % (0-0.5); % Lymphocytes 25.8 % (20.5-51.1); % Monocytes 12.1 % (1.7-9.3); % Neutrophils 60.5 % (42.2-75.2); Absolute Lymphocytes 0.3 10^3/uL (1.2-3.4); Absolute Monocytes 0.2 10^3/uL (0.1-0.6); Absolute Neutrophils 0.8 10^3/uL (1.4-6.5); Nucleated Red Blood Cells % 0 % (-)
--- NOTE | 2024-10-07 09:55 | W.PN.ONC2 ---
Today's Communication / Plan
-
.
Impression
Impression
Exacerbation COPD
URI
Pulmonary embolus no evidence of DVT
Anal carcinoma status post initiation of systemic therapy with radiation
pancytopenia secondary to chemo
Chemo induced stomatitis
HIV CD4 count less than 300 when last evaluated
Plan
Plan
neuropenic precautions -avoid GCSF with XRT
Dexamethasone swish and spit
DOAC
Resume radiation therapy on discharge
monitor for bleeding with rectal ca, thrombocytopenia and now on DOAC -currently reports no significant bleeding
daily CBC
Subjective/Objective
Subjective
no new complaints
Vital Signs:
Vital Signs
Temp Pulse Resp BP Pulse Ox
97.6 F 72 18 146/90 97
10/07/24 07:05 10/07/24 07:48 10/07/24 07:48 10/07/24 07:05 10/07/24 07:48
Lab Results:
Laboratory Data
WBC 1.2 10^3/uL (4.8-10.8) L* 10/07/24 08:03
Hgb 9.5 g/dL (13.0-18.0) L 10/07/24 08:03
Plt Count 58 10^3/uL (130-400) L 10/07/24 08:03
APTT 108.4 Sec (23.4-35.0) H 10/06/24 16:46
eGFR Cancelled 10/07/24 08:10
[2024-10-07 11:05] VITALS: BP 181/99
[2024-10-07 12:09] VITALS: BP 144/85; PULSE 113; PULSE 141; O2SAT 93
--- NOTE | 2024-10-07 12:24 | PN.CDI ---
CDI
- -
CDI:
Physician Documentation Request
Admit Date: 10/05/24 14:40
Dear Doctor,
Patient admitted for PE.
10/06 Hospitalist PN: 'Left DVT-nonocclusive - cont eliquis'
Clarify which of the following accurately represents the acuity of the DVT. Possible options might include:
____ Acute
Chronic
____ Other
Use of terms such as suspected, likely, concern for, or probable (associated with a specific diagnosis that is being evaluated, monitored, or treated as if it exists) are acceptable and can be coded in the inpatient setting, when documented at the
time of discharge.
Thank you,
Britt Cheek RN, BSN
CDI Specialist
Available via [employer] text
Please use your independent medical judgment in providing your response.
[2024-10-07 14:10] LABS: Iron 84 ug/dl (49-181)
[2024-10-07 14:19] LABS: Percent Saturation 38 % (20-50); Total Iron Binding Capacity 220 ug/dl (261-462)
[2024-10-07 15:25] VITALS: BP 153/84
--- NOTE | 2024-10-07 15:50 | CM ---
Patient chart reviewed
PT eval home PT vs no needs
declines home PT
PLAN: home, no needs, declines VN
to transport
--- NOTE | 2024-10-07 17:46 | W.PN.HOSP.TC ---
Addendum entered and electronically signed by Danilo Falcon MD 10/07/24 20:44:
Attending Addendum-I saw and evaluated the patient. I reviewed the resident�s note and agree with findings and plan as documented in the resident�s note. Sub: complains mouth pain. 'I always have blood in my stools my mouth still hurts nothing is
helping' States SOB improved Full 12 point ROS reviewed and negative except as documented Exam- vitals reviewed in EMR GEN-NAD heart RRR lungs decreased BS @ bases scattered expiratory wheeze abd soft LE no edema
Plan:
#Acute PE
- CT chest- pulmonary embolism in the right lung extending from the distal right main pulmonary artery into segmental branches and also possibly within peripheral subsegmental left lower lobe branches.
- No findings to suggest right heart strain.
- Minor likely chronic partial T9, T8 and especially T7 vertebral compression fractures
- transitioned hep gtt -> eliquis loading 10/06-PM - tolerating well
- not hypotensive
- Oxygen if SpO2<88%
#Probable Chronic Left DVT-nonocclusive
- cont eliquis
# AE COPD
- improving
- cont duonebs ATC
- wean solumedrol - PO pred
- maintenance inhaler and rescue inhaler on DC
- need pulm follow up with PFTS
# Chronic T7-9 comp fx
- PT OT
- pain control
# Tobacco Abuse
- cont geronimo patch- advised to quit
#Pancytopenia
- Likely secondary to chemotherapy
- Continue to monitor cell counts
- appreciate heme-onc input
# Hyponatremia
- Likely in the setting of hypovolemia, poor oral intake/GI loss
- improving
# Anal SCC
- recently diagnosed 07/2024
- heme-onc input appreciated
- Patient follows with Dr. Cra[facility]
- Completed first cycle of chemoradiation last Thursday
# History of HIV
- Continue home etravirine, Prezcobix, Tivicay
Dispo DC home with partner
CODE STATUS full code
Time spent coordinating care, DC planning, review of DC plan of care with resident, transition of care, review of records, med rec/scripts sent electronically, consults, notes, d/w consultants, nursing, family, and CM� 34 mins
Original Note:
Today's Communication/Plan
-
Continue Eliquis 10mg twice daily x7 days total, then 5mg twice daily for at least 3 months
Outpatient follow-up with oncology for resuming cancer therapy
Outpatient follow-up with pulmonology for COPD management, will discharge home on inhalers
Prednisone 60mg x5 days on discharge
Assessment / Plan
Assessment / Plan
59-year-old active smoker male with past medical history of HIV on HAART, anal cancer (diagnosed in July 2024) that received an initial cycle of 5-fluorouracil and mitomycin, COPD (on Primatene as needed) who presented to the emergency
department with complaints of cough and shortness of breath. No overnight events.
# Acute pulmonary embolism
- PE study: Findings compatible with pulmonary embolism in the right lung extending from the distal right main pulmonary artery into segmental branches and also possibly within peripheral subsegmental left lower lobe branches. No findings to suggest
right heart strain.
- Hemodynamically stable
- Started on heparin gtt, discussed with heme-onc --> transitioned to Eliquis
- Oxygen if SpO2<88%
- Continue Eliquis 10 mg twice daily x7 days total, then 5 mg twice daily for at least 3 months - outpatient follow-up with oncology for further management
# COPD exacerbation, likely
- Wheezing on exam, continue DuoNebs and Solu-Medrol
- Continue budesonide
- Continue with LAMA/LABA and albuterol rescue inhaler on discharge
- Discharge on prednisone 60mg x5 days
- Recommended outpatient follow-up with pulmonology for COPD management
# DVT
- Bilateral lower extremity Doppler: Nonocclusive thrombus in the left mid and distal femoral vein.
- Likely acute
- Continue anticoagulation
#Pancytopenia
- Likely secondary to chemotherapy
- Neutrophil count >500
- Continue to monitor cell counts
- Consulted heme-onc
- Bleeding precautions
# T7-T9 compression fracture, likely chronic
- Chest CT revealed minor likely chronic partial T9, T8 and especially T7 vertebral compression fractures.
- Pain management
- PT OT eval
# Hyponatremia
- Likely in the setting of hypovolemia, poor oral intake/GI loss
- Started IV fluids
- Continue to monitor
- Not resolved
# Stomatitis
- In the setting of cancer treatment
- Dexamethasone swish and spit
- Oxycodone did not provide relief
- Suggested swishing ice chips in mouth for ~30 mins
# History of anal cancer
- Consulted heme-onc
- Patient follows with Dr. Craven at [facility]
- Completed first cycle of chemoradiation last Thursday
- Per hematology, reinstate radiation therapy on discharge
# History of HIV
- Continue home meds
# Tobacco Abuse
- Started nicotine patch
- Advised to quit
# Hearing loss
- Cerumen impaction on exam
- Advised outpatient [facility]
Anticipated Discharge: Today
Subjective/Interval History
-
Date of Service: October 07, 2024
Objective Data
-
Labs:
Laboratory Results
10/07/24
08:03
WBC 1.2 L*
Hgb 9.5 L
Hct 27.2 L
Plt Count 58 L
Sodium 135
Potassium 3.9
Chloride 105
Carbon Dioxide 27
BUN 17
Creatinine 1.0
Glucose 155 H
Calcium 9.1
Vital Signs:
Vital Signs
Temp Pulse Resp BP Pulse Ox
97.5 F 83 15 153/84 92
10/07/24 15:25 10/07/24 15:35 10/07/24 15:35 10/07/24 15:25 10/07/24 15:35
I&O
10/06/24 10/07/24 10/08/24
06:59 06:59 06:59
Intake Total 960 / 960 2340 / 2340 1440 / 1440
Output Total 450 / 450 1100 / 1100 500 / 500
Balance 510 / 510 1240 / 1240 940 / 940
Review of Systems
-
History Source: Patient
Constitutional: Reports No Symptoms
EENT: Reports Mouth Pain and Other (Difficulty hearing)
Respiratory: Reports Trouble Breathing and Wheezing
Cardiac: Reports No Symptoms
Abdomen/GI: Reports No Symptoms
Breast: Reports No Symptoms
Genitourinary: Reports No Symptoms
Musculoskeletal: Reports No Symptoms
Skin: Reports No Symptoms
Neuro: Reports No Symptoms
Endocrine: Reports No Symptoms
Hematologic / Lymphatic: Reports No Symptoms
Allergy / Immunology: Reports No Symptoms
Physical Exam
-
General: Well Developed, Well Nourished, No Apparent Distress and Comfortable
HEENT: Normocephalic and Other (Cerumen impaction on otoscopy)
Respiratory: Wheezes and Non Labored Respirations
Cardiac: Regular Rhythm, S1/S2 and Tachycardic
GI: Soft, Nontender, Nondistended and Normal Bowel Sounds
Genito-urinary: No Costovertebral Tender
Musculoskeletal: No Clubbing, No Cyanosis and No Edema
Skin: Warm
Neuro: Awake, Alert and Oriented
Hematologic / Lymphatic: No Lymphadenopathy
Psych: Calm
--- NOTE | 2024-10-07 18:49 | W.DCSUMMARY ---
Addendum entered and electronically signed by Danilo Falcon MD 10/07/24 20:45:
Read, reviewed, and agree. See same day progress note for additional details.
Musa Falcon MD
Original Note:
Documented by User: Gabriela Sosa MD, Resident 10/07/24 19:19
Discharge Summary
Discharge Data
Date of Admission: 10/05/24
Date of Discharge: 10/07/24
-
Pending Results: No
Hospital Course
Discharging Physician : Dr. Gabriela Guillen, Dr. Danilo Clarke
Disposition : Home
Primary care physician : None
Principal Discharge diagnosis :
Acute pulmonary embolism
COPD exacerbation
Deep vein thrombosis
Pancytopenia
Hyponatremia
Tobacco use disorder
Chronic T7-T9 compression fracture
Cerumen impaction
Chronic Discharge diagnosis :
History of anal cancer
History of HIV on HAART
Hospital Course :
Patient is a 59-year-old male with past medical history of HIV on HAART, anal cancer on chemoradiation therapy -completed first cycle on Thursday09/30/24, COPD who presented to the emergency department with shortness of breath and cough.
# Acute pulmonary embolism
- Patient was tachypneic and tachycardic on arrival
- Not hypoxic, saturating well on room air
- Chest CTA revealed pulmonary embolism, no right heart strain --> was started on heparin gtt after discussion with heme-onc
- Transitioned to Eliquis 10 mg twice daily x7 days (first dose: 10/06/24 8PM), then 5 mg twice daily for least 3 months
- Outpatient follow-up with oncology after 3 months for further anticoagulation management
# COPD exacerbation
- Diffuse wheeze on exam
- Was started on DuoNebs, Pulmicort and Solu-Medrol for possible COPD exacerbation
- Discharged on Duaklir Pressair and Proair Digihaler prn, prednisone 60mg x5 days
- Outpatient follow-up with pulmonology for COPD management
# Pancytopenia
- Likely secondary to recent chemotherapy
- ANC greater than 500
- No fever detected
- Cell counts stable
- Bleeding precautions
# Hyponatremia
- Likely hypovolemic
- Resolved with IV fluids
# DVT
- Bilateral lower extremity Doppler: Nonocclusive thrombus in the left mid and distal femoral vein
- On Eliquis
# T7-T9 compression fracture, likely chronic
- Patient not symptomatic
- Revealed on chest CT
# Stomatitis, post cancer treatment
- Dexamethasone swish and spit and oxycodone did not provide relief
- Suggested swishing ice chips in mouth for ~30 mins
# History of anal cancer
- Heme-onc consulted
- Per hematology, resume radiation therapy on discharge
# History of HIV
- Continue home meds
# Tobacco use disorder
- Started nicotine patch
- Advised to quit
# Hearing loss
- Cerumen impaction on exam
- Advised outpatient follow-[facility] with [facility]
Important imaging findings :
Chest CT PE study 10/05/24:
Findings compatible with pulmonary embolism in the right lung extending from the distal right main pulmonary artery into segmental branches and also possibly within peripheral subsegmental left lower lobe branches.
No findings to suggest right heart strain.
Some areas of biapical and right upper lobe scarring. Small right upper lobe old calcified granuloma. Minor areas of nonspecific groundglass opacity in the right upper and lower lobes.
Minor likely chronic partial T9, T8 and especially T7 vertebral compression fractures.
Bilateral lower extremity duplex 10/06/24:
No evidence of right lower extremity deep venous thrombosis.
Left lower extremity demonstrates nonocclusive thrombus in the mid and distal femoral vein.
Discharge Plan
-
Patient Disposition: Home (Routine Discharge)
Discharge Diagnosis/Procedures: Acute pulmonary embolism, COPD exacerbation, pancytopenia, hypovolemic hyponatremia, hx of anal cancer, hx of HIV on HAART, tobacco use disorder, chronic T7-T9 compression fracture.
Condition: Fair
Diet: Regular
Activity: As tolerated
Instructions: Pulmonary embolism - Discharge instructions
Referrals:
NONE,* [Family Provider] -
Toño Jackson MD [Active] -
Additional Discharge Medication Instructions: You were diagnosed with pulmonary embolism on this admission. You should continue to take Eliquis two 5mg tablets every 12 hours starting this evening at @8 PM (10/07/24). After you have completed a total
of 12 doses (equivalent to 24 tablets), you need to continue with one 5mg tablet every 12 hours for at least 3 months. Please follow-up with your oncologist after 3 months about continuing Eliquis.
You can try swishing ice cubes in your mouth for ~30 minutes for your mouth pain.
Prescriptions:
New
Eliquis 5 mg Tablet
10 mg PO BID Qty: 24 0RF
Rx Instructions:
Start first dose this evening at 20:00 (10/07/24). Take two tablets every 12 hours for a total of 24 tablets.
nicotine 14 mg/24 hr Patch 24 Hour
14 mg transdermal DAILY Qty: 14 0RF
Eliquis 5 mg tablet
5 mg PO BID Qty: 180 0RF
Proair Digihaler 90 mcg/actuation aero powdr breath act w/sensor
2 inh inhalation Q6H PRN (Reason: shortness of breath or wheezing) Qty: 1 0RF
Duaklir Pressair 400-12 mcg/actuation aerosol powdr breath activated
1 inh inhalation BID Qty: 1 0RF
prednisone 20 mg tablet
60 mg PO DAILY 5 Days Qty: 15 0RF
Continued
etravirine [Intelence] 200 mg Tablet
200 mg PO BID Qty: 0 0RF
Tivicay 50 mg Tablet
50 mg PO BID Qty: 0 0RF
Prezcobix 800-150 mg-mg Tablet
1 tab PO DAILY Qty: 0 0RF
ondansetron HCl 8 mg Tablet
8 mg PO [id number] PRN (Reason: nausea)
guaifenesin 200 mg/5 mL Liquid
200 mg PO DAILYPRN PRN (Reason: cough)
Magic Mouthwash
5 ml mucous membrane QIDPRN PRN (Reason: mild oral pain)
Discharge Orders:
Discharge Patient (As Directed); Ordered 10/07/24
Ordered By: Gabriela Sosa
Discharge Date and Time
Discharge Date/Time: 10/07/24 17:34
Print Language: CHINESE

Documented by User: Danilo Falcon MD 10/07/24 20:39
Discharge Summary
Discharge Data
Date of Admission: 10/05/24
Date of Discharge: 10/07/24
Discharge Plan
-
Patient Disposition: Home (Routine Discharge)
Discharge Diagnosis/Procedures: Acute pulmonary embolism, COPD exacerbation, pancytopenia, hypovolemic hyponatremia, hx of anal cancer, hx of HIV on HAART, tobacco use disorder, chronic T7-T9 compression fracture.
Condition: Fair
Diet: Regular
Activity: As tolerated
Instructions: Pulmonary embolism - Discharge instructions
Referrals:
NONE,* [Family Provider] -
Toño Jackson MD [Active] -
Additional Discharge Medication Instructions: You were diagnosed with pulmonary embolism on this admission. You should continue to take Eliquis two 5mg tablets every 12 hours starting this evening at @8 PM (10/07/24). After you have completed a total
of 12 doses (equivalent to 24 tablets), you need to continue with one 5mg tablet every 12 hours for at least 3 months. Please follow-up with your oncologist after 3 months about continuing Eliquis.
You can try swishing ice cubes in your mouth for ~30 minutes for your mouth pain.
Prescriptions:
New
Eliquis 5 mg Tablet
10 mg PO BID Qty: 24 0RF
Rx Instructions:
Start first dose this evening at 20:00 (10/07/24). Take two tablets every 12 hours for a total of 24 tablets.
nicotine 14 mg/24 hr Patch 24 Hour
14 mg transdermal DAILY Qty: 14 0RF
Eliquis 5 mg tablet
5 mg PO BID Qty: 180 0RF
Proair Digihaler 90 mcg/actuation aero powdr breath act w/sensor
2 inh inhalation Q6H PRN (Reason: shortness of breath or wheezing) Qty: 1 0RF
Duaklir Pressair 400-12 mcg/actuation aerosol powdr breath activated
1 inh inhalation BID Qty: 1 0RF
prednisone 20 mg tablet
60 mg PO DAILY 5 Days Qty: 15 0RF
Continued
etravirine [Intelence] 200 mg Tablet
200 mg PO BID Qty: 0 0RF
Tivicay 50 mg Tablet
50 mg PO BID Qty: 0 0RF
Prezcobix 800-150 mg-mg Tablet
1 tab PO DAILY Qty: 0 0RF
ondansetron HCl 8 mg Tablet
8 mg PO [id number] PRN (Reason: nausea)
guaifenesin 200 mg/5 mL Liquid
200 mg PO DAILYPRN PRN (Reason: cough)
Magic Mouthwash
5 ml mucous membrane QIDPRN PRN (Reason: mild oral pain)
Discharge Orders:
Discharge Patient (As Directed); Ordered 10/07/24
Ordered By: Gabriela Sosa
Discharge Date and Time
Discharge Date/Time: 10/07/24 17:34
Print Language: CHINESE
== END 2024-10-07 17:34 | disposition home or self-care (01) | DRG 175 ==
LOC: 3 WEST ACU 14:40
PROVIDERS: Emergency Medicine; Student in an Organized Health Care Education/Training Program; ADMITTING PHYSICIAN Family Medicine; CONSULT PHYSICIAN Internal Medicine Hematology & Oncology; EMERGENCY PHYSICIAN Emergency Medicine
DX: I26.99 Other pulmonary embolism without acute cor pulmonale (principal); D61.810 Antineoplastic chemotherapy induced pancytopenia; J44.1 Chronic obstructive pulmonary disease with (acute) exacerbation; E87.1 Hypo-osmolality and hyponatremia; M48.54XA Collapsed vertebra, not elsewhere classified, thoracic region, initial encounter for fracture; C21.0 Malignant neoplasm of anus, unspecified; I82.512 Chronic embolism and thrombosis of left femoral vein; F17.200 Nicotine dependence, unspecified, uncomplicated; Z21 Asymptomatic human immunodeficiency virus [HIV] infection status; E86.0 Dehydration; K12.1 Other forms of stomatitis; E86.1 Hypovolemia; H61.20 Impacted cerumen, unspecified ear; T45.1X5A Adverse effect of antineoplastic and immunosuppressive drugs, initial encounter; Y92.9 Unspecified place or not applicable; Z92.21 Personal history of antineoplastic chemotherapy; Z92.3 Personal history of irradiation; Z11.52 Encounter for screening for COVID-19
CPT/HCPCS: 71046; 71275; 80048; 80053; 82728; 83540; 83550; 83605; 85025; 85027; 85730; 87040; 87449; 87502; 87811; 93005; 93970; 94640; 96365; 96375; 97163; 97167; 99285; Q9967

== ENCOUNTER → 2025-02-16 14:24 | Outpatient (REF) | payer BC, SELFPAY | LOC: RAD 14:24 | PROVIDERS: ATTENDING PHYSICIAN Surgery; OTHER PHYSICIAN Radiology Radiation Oncology | DX: C21.1 Malignant neoplasm of anal canal (principal) | CPT/HCPCS: 71250; 74177; Q9967 ==